=== PATIENT | male | born 1960 | race Caucasian/White ===

== ENCOUNTER 2016-12-30 13:58 | Emergency (ER) | payer SELFPAY ==
[~2016-12-30] VITALS: Ht 190.5 cm; Wt 99.6 kg
[~2016-12-30 13:58] MED LIST: ALBU1AER9 INH; AMOX500T3 PO; HOMETAB PO; IBUP-1427 PO
[2016-12-30 14:00] VITALS: TEMP 37; Ht 190.5 cm; Wt 99.6 kg
[2016-12-30] MEDS ORDERED: ASPI81TA28 PO (14:28)
[2016-12-30 14:47] LABS: BASO % 0.2 %; BASO ABS # 0.01 K/uL (0-0.2); COMPLETE YES; EOS % 1.3 %; HEMATOCRIT 42.9 % (42-52); IG% 0.4 %; LYMPH % 17.5 %; LYMPH ABS # 0.97 K/uL (1.2-3.4); MEAN CELL VOLUME 80.2 fL (80-100); MEAN CORPUSCULAR HEMOGLOBIN 28.6 pg (25-34); MEAN CORPUSCULAR HGB CONC 35.7 g/dl (32-36); MEAN PLATELET VOLUME 9.9 fL (7.4-10.4); MONO % 12.7 %; NEUT % 67.9 %; PLATELET COUNT 204 K/uL (130-400); RED BLOOD COUNT 5.35 M/uL (4.7-6.1); WHITE BLOOD COUNT 5.53 K/uL (4.8-10.8)
[2016-12-30] MEDS ORDERED: OPTIRAY 320 IV PRN (15:15)
--- NOTE | 2016-12-30 15:21 | DIAGNOSTIC IMAGING REPORT ---
CHEST ONE VIEW PORTABLE CLINICAL HISTORY: Left sided chest and back pain. COMPARISON STUDY: Chest radiograph October 10, 2015. FINDINGS: Linear left midlung opacity favors atelectasis. There is no consolidation to suggest pneumonia and there is no evidence of pulmonary edema. Cardiomediastinal silhouette is unremarkable. The patient is rotated. IMPRESSION: No acute cardiopulmonary findings. Electronically signed by: Carter Shoemaker M.D. 12/30/2016 3:19 PM Dictated Date/Time: 12/30/2016 3:18 PM
[2016-12-30 15:44] LABS: ALB/GLOB RATIO 1.1 (0.9-2); ALKALINE PHOSPHATASE 69 U/L (45-117); ALT/SGPT 24 U/L (12-78); AST/SGOT 18 U/L (15-37); BLOOD UREA NITROGEN 14 mg/dl (7-18); BUN/CREATININE RATIO 14.3 (10-20); CALCIUM 8.9 mg/dl (8.5-10.1); CARBON DIOXIDE 23 mmol/L (21-32); CHLORIDE 107 mmol/L (98-107); CKMB/CK RATIO 0.9 (0-3.0); CREATININE 0.96 mg/dl (0.60-1.40); GLUCOSE 107 mg/dl (70-99); POTASSIUM 4.1 mmol/L (3.5-5.1); SODIUM 141 mmol/L (136-145)
--- NOTE | 2016-12-30 16:29 | DIAGNOSTIC IMAGING REPORT ---
CHEST CTA for PULMONARY ARTERIES CT DOSE: 501.03 mGy.cm HISTORY: Left-sided chest pain. Short of breath. TECHNIQUE: Multiaxial CT images of the chest were performed following the intravenous administration of contrast to evaluate the pulmonary arteries. Maximal intensity projection images were also obtained. COMPARISON STUDY: Chest 12/30/2016. FINDINGS: There is a normal caliber thoracic aorta with no evidence for dissection. There is no evidence for pulmonary embolus. No pleural effusions. No pneumothorax. The liver is unremarkable. There appear to be multiple hypodense lesions within the spleen with the largest measuring 2.2 cm. Partially visualized exophytic hypodense lesion within the upper pole the right kidney which measures 2.9 cm. This favors a cyst. A 5 mm left thyroid nodule. No mediastinal or hilar lymphadenopathy. The central airways are patent. The lungs are essentially clear. IMPRESSION: 1. No evidence for pulmonary embolus. 2. There is suggestion of multiple hypodense round lesions within the spleen measuring up to 2.2 cm. Recommend dedicated splenic ultrasound for confirmation. Electronically signed by: Elia Madrid M.D. 12/30/2016 4:26 PM Dictated Date/Time: 12/30/2016 4:18 PM
--- NOTE | 2016-12-30 16:54 | EMERGENCY ROOM VISIT NOTE ---
History First contact with patient: 14:25 Chief Complaint: BACK PAIN Stated Complaint: BACK PAIN, MUSCLE BEHIND HEART/POSS. ANGINA History of Present Illness The patient is a 56 year old male who presents to the Emergency Room with complaints of left-sided thoracic back pain for "a while." The patient states that he has had intermittent pain in that area for the past one year. He states the pain is in the back and radiates into the chest. He states it is worse with movement. He denies any injury but does state that he is very active and lifts heavy boxes at work. He reports that the pain typically goes away on its own and stretching sometimes helps. The pain is not associated with exertion. It does not radiate into his jaw or arms. He states that he is short of breath at times when the pain is severe. He rates his overall discomfort a 9/10 and does not typically take any medications for the pain. He has a history of hypertension but does not take any medication for this. He denies any history of heart disease. He does report a history of heart disease in his father. The patient is a former smoker. He denies any recent prolonged travel. Review of Systems A complete 10-point Review of Systems was discussed with the patient, with pertinent positives and negatives listed in the History of Present Illness. All remaining Review of Systems questions can be considered negative unless otherwise specified. Past Medical/Surgical History Medical Problems: (1) Bursae & Tendons Dis Shlder Nos (2) Colles' Fracture-Closed (3) Shldr/Upper Arm Inj Nos (4) Unilat Inguinal Hernia Family History FH: multiple sclerosis Heart disease Seizures Social History Smoking Status: Former Smoker Alcohol Use: occasionally Marital Status: single Housing Status: lives with friends Occupation Status: employed Current/Historical Medications Scheduled Aspirin (Aspirin Ec), 81 MG PO DAILY Allergies Coded Allergies: No Known Allergies (Unverified , 12/30/16) Physical Exam Vital Signs Date Time Temp Pulse Resp B/P Pulse Ox O2 Delivery O2 Flow Rate FiO2 12/30/16 17:02 58 16 172/99 100 12/30/16 16:26 58 18 155/99 97 Room Air 12/30/16 14:49 67 12/30/16 14:00 37.0 74 18 159/106 94 Room Air Physical Exam VITALS: Vitals are noted on the nurse's note and reviewed by myself. Vital signs stable. GENERAL: This is a 56-year-old male, in no acute distress, nondiaphoretic, well- developed well-nourished. SKIN: The skin was without rashes. EARS: External auditory canals clear, tympanic membranes pearly rhodes without erythema or effusion bilaterally. EYES: Pupils equal round and reactive to light and accommodation. MOUTH: Mucous membranes moist. Tonsils are not enlarged. NECK: Supple without nuchal rigidity. No lymphadenopathy. HEART: Regular rate and rhythm without murmurs gallops or rubs. LUNGS: Clear to auscultation bilaterally without wheezes, rales or rhonchi. ABDOMEN: Positive bowel sounds x 4. Soft, nontender, without masses or organomegaly. MUSCULOSKELETAL: Reproducible tenderness over the left thoracic paraspinous muscles. NEURO: Patient was alert and oriented to person place and time. Medical Decision & Procedures ER Provider Diagnostic Interpretation: CHEST ONE VIEW PORTABLE FINDINGS: Linear left midlung opacity favors atelectasis. There is no consolidation to suggest pneumonia and there is no evidence of pulmonary edema. Cardiomediastinal silhouette is unremarkable. The patient is rotated. IMPRESSION: No acute cardiopulmonary findings. CHEST CTA for PULMONARY ARTERIES FINDINGS: There is a normal caliber thoracic aorta with no evidence for dissection. There is no evidence for pulmonary embolus. No pleural effusions. No pneumothorax. The liver is unremarkable. There appear to be multiple hypodense lesions within the spleen with the largest measuring 2.2 cm. Partially visualized exophytic hypodense lesion within the upper pole the right kidney which measures 2.9 cm. This favors a cyst. A 5 mm left thyroid nodule. No mediastinal or hilar lymphadenopathy. The central airways are patent. The lungs are essentially clear. IMPRESSION: 1. No evidence for pulmonary embolus. 2. There is suggestion of multiple hypodense round lesions within the spleen measuring up to 2.2 cm. Recommend dedicated splenic ultrasound for confirmation. Laboratory Results 12/30/16 14:24 Red Blood Count 5.35, Mean Corpuscular Volume 80.2, Mean Corpuscular Hemoglobin 28.6, Mean Corpuscular Hemoglobin Concent 35.7, Mean Platelet Volume 9.9, Neutrophils (%) (Auto) 67.9, Lymphocytes (%) (Auto) 17.5, Monocytes (%) (Auto) 12.7, Eosinophils (%) (Auto) 1.3, Basophils (%) (Auto) 0.2, Neutrophils # (Auto ) 3.76, Lymphocytes # (Auto) 0.97, Monocytes # (Auto) 0.70, Eosinophils # (Auto ) 0.07, Basophils # (Auto) 0.01 12/30/16 14:24 Test 12/30/16 14:24 White Blood Count 5.53 K/uL (4.8-10.8) Red Blood Count 5.35 M/uL (4.7-6.1) Hemoglobin 15.3 g/dL (14.0-18.0) Hematocrit 42.9 % (42-52) Mean Corpuscular Volume 80.2 fL (80-100) Mean Corpuscular Hemoglobin 28.6 pg (25-34) Mean Corpuscular Hemoglobin Concent 35.7 g/dl (32-36) Platelet Count 204 K/uL (130-400) Mean Platelet Volume 9.9 fL (7.4-10.4) Neutrophils (%) (Auto) 67.9 % Lymphocytes (%) (Auto) 17.5 % Monocytes (%) (Auto) 12.7 % Eosinophils (%) (Auto) 1.3 % Basophils (%) (Auto) 0.2 % Neutrophils # (Auto) 3.76 K/uL (1.4-6.5) Lymphocytes # (Auto) 0.97 K/uL (1.2-3.4) Monocytes # (Auto) 0.70 K/uL (0.11-0.59) Eosinophils # (Auto) 0.07 K/uL (0-0.5) Basophils # (Auto) 0.01 K/uL (0-0.2) RDW Standard Deviation 37.9 fL (36.4-46.3) RDW Coefficient of Variation 13.0 % (11.5-14.5) Immature Granulocyte % (Auto) 0.4 % Immature Granulocyte # (Auto) 0.02 K/uL (0.00-0.02) D-Dimer 1140 ug/L FEU (0-500) Anion Gap 11.0 mmol/L (3-11) Est Creatinine Clear Calc Drug Dose 102.7 ml/min Estimated GFR () 102.0 Estimated GFR (Non- 88.0 BUN/Creatinine Ratio 14.3 (10-20) Calcium Level 8.9 mg/dl (8.5-10.1) Total Bilirubin 0.5 mg/dl (0.2-1) Aspartate Amino Transf (AST/SGOT) 18 U/L (15-37) Alanine Aminotransferase (ALT/SGPT) 24 U/L (12-78) Alkaline Phosphatase 69 U/L (45-117) Total Creatine Kinase 148 U/L (39-308) Creatine Kinase MB 1.4 ng/ml (0.5-3.6) Creatine Kinase MB Ratio 0.9 (0-3.0) Troponin I < 0.015 ng/ml (0-0.045) Total Protein 7.3 gm/dl (6.4-8.2) Albumin 3.8 gm/dl (3.4-5.0) Globulin 3.5 gm/dl (2.5-4.0) Albumin/Globulin Ratio 1.1 (0.9-2) ECG Indication: back/shoulder pain Rate (beats per minute): 56 Rhythm: sinus bradycardia Findings: 1st degree AV block, T-wave inversion (Inferior) Comparison ECG Date: T-wave inversions present in lead II ED Course The patient was evaluated as above. Labs were drawn and IV access was obtained. Patient declined analgesics. Chest x-ray and CT for PE was performed and read by radiology as above. Discharge instructions were reviewed with the patient. The patient verbalized understanding of my assessment and treatment plan and was discharged home in good condition. Medical Decision Differential diagnosis includes acute coronary syndrome, pulmonary embolism, pneumothorax, pericarditis, myocarditis, endocarditis, anxiety, musculoskeletal pain, GERD, costochondritis, pneumonia, among others. The patient is a 56-year-old male who presents today complaining of left-sided chest/back pain which has been off and on for the past year. History, this does sound more like musculoskeletal pain than exertional chest pain. Labs revealed no leukocytosis, anemia or concerning electrolyte abnormalities. Troponin was not elevated. D-dimer was found to be elevated, but CT of the chest showed no evidence of PE. EKG showed a first-degree AV block which is chronic for the patient. No evidence of acute ischemia. Patient's pain is reproducible on examination. I feel it is likely secondary to a muscle spasm. He was instructed to follow-up with the primary care provider. Conservative measures were discussed. The patient's case was reviewed with Dr. Jorge, ED attending physician, who agreed with my assessment and treatment plan. Based on the patient's presentation and work up, I feel the patient is stable for outpatient treatment. The patient was educated to the emergency department for any worsening of their current condition or new/concerning symptoms. He will follow up with his primary care provider this week. Impression Primary Impression: Thoracic back pain Departure Information Dispostion Home / Self-Care Condition GOOD Referrals Asiya Mcclellan D.O. (PCP) Patient Instructions My [facility] Additional Instructions You have been treated in the Emergency Department for your Back pain. Laboratory results and Imaging Studies have ruled out any acute cardiac or pulmonary cause of your pain. For pain control, you can use the following [id number] medicines (if >12 yo): - Regular strength (325mg/tab) Tylenol (acetaminophen) 2 tabs every 4-6 hours as needed. Do not exceed 12 tablets in a 24 hour period. Avoid taking more than 4 grams (4000 mg) of Tylenol per day. This includes any other sources of acetaminophen you may take on a regular basis. - Regular strength (200 mg/tab) Advil (ibuprofen) 1-2 tabs every 4-6 hours as needed. Do not exceed a dose of 3200 mg per day. You should schedule a follow-up appointment with your Primary Care Provider in 2 -3 days for further evaluation from today's Emergency Department visit. You will also need an ultrasound of your spleen due to some abnormalities on the CT scan. Your blood pressure should be rechecked by the primary care provider this week, as it was high today. Return to the Emergency Department if your current symptoms worsen despite treatment course outlined above, or if you develop any of the following symptoms : worsening chest pain, associated jaw/arm pain, nausea, dizziness, shortness of breath, bloody cough, or fainting. Problem Qualifiers Primary Impression: Thoracic back pain Chronicity: acute Back pain laterality: left Qualified Codes: M54.6 - Pain in thoracic spine
[2016-12-30 17:02] VITALS: BP 172/99; PULSE 58; O2SAT 100
== END 2016-12-30 17:03 | disposition home or self-care (01) ==
LOC: C.EDB 14:00 → C.EDC 17:03
DX: M54.6 Pain in thoracic spine (principal); I44.0 Atrioventricular block, first degree; Z87.81 Personal history of (healed) traumatic fracture; Z87.891 Personal history of nicotine dependence; Z79.82 Long term (current) use of aspirin; Z82.49 Family history of ischemic heart disease and other diseases of the circulatory system; Z82.0 Family history of epilepsy and other diseases of the nervous system

== ENCOUNTER 2020-02-17 19:46 | Observation (INO) ==
[2020-02-17] MEDS ORDERED: SODIUM CHLORIDE 0.9% 1000ML 1,000 ML IV SCH (20:30)
[2020-02-17 20:49] LABS: Basophils # (auto) 0.03 K/uL (0-0.2); Basophils % (auto) 0.4 %; Eosinophils # (auto) 0.42 K/uL (0-0.5); Eosinophils % (auto) 5.3 %; Hematocrit (blood only) 32.7 % (42-52); Hemoglobin 11.2 g/dL (14.0-18.0); Immature Granulocytes # (auto) 0.01 K/uL (0.00-0.02); Immature Granulocytes % (auto) 0.1 %; Lymphocytes # (auto) 1.64 K/uL (1.2-3.4); Lymphocytes % (auto) 20.7 %; Mean Corpuscular Hemoglobin 29.1 pg (25-34); Mean Corpuscular Hgb Conc 34.3 g/dL (32-36); Mean Corpuscular Volume 84.9 fL (80-100); Monocytes # (auto) 0.52 K/uL (0.11-0.59); Monocytes % (auto) 6.6 %; Neutrophils # (auto) 5.31 K/uL (1.4-6.5); Neutrophils % (auto) 66.9 %; Platelet Count 223 K/uL (130-400); RDW Coefficient of Variation 13.8 % (11.5-14.5); RDW Standard Deviation 42.5 fL (36.4-46.3); Red Blood Count 3.85 M/uL (4.7-6.1); White Blood Count 7.93 K/uL (4.8-10.8)
--- NOTE | 2020-02-17 20:52 | XRay Report ---
XR chest 1V portable CLINICAL HISTORY: Atypical chest pain. Cough. COMPARISON STUDY: 03/25/2018 FINDINGS: The cardiac and mediastinal contours are normal. There is no evidence of focal pulmonary co nsolidation. There is no evidence of failure. No pleural effusions are visualized.[No pneumothorax is visualized. IMPRESSION: No active disease in the chest. ACT 112: Negative or not required by law. Electronically signed by: Emmanuel Mcintosh M.D. 02/17/2020 8:51 PM
[2020-02-17 20:59] LABS: INR 0.9 (0.9-1.1); Partial Thromboplastin Time 27.9 Seconds (21.0-31.0); Prothrombin Time 9.8 Seconds (9.0-12.0)
[2020-02-17 21:05] LABS: BUN Creatinine Ratio 22.7 (10-20); Calcium 8.4 mg/dl (8.5-10.1); Creatinine Clr Calc Pharmacy 123.3 ml/min; Est GFR (African American) 116.4; Est GFR (Non-African American) 100.4; Potassium 4.1 mmol/L (3.5-5.1)
[2020-02-17 21:08] LABS: Bilirubin,Total 0.4 mg/dl (0.2-1); Globulin 2.9 gm/dl (2.5-4.0); Total Protein 5.9 gm/dl (6.4-8.2)
[2020-02-17] MEDS ORDERED: IOVERSOL 100ml IV PRN (22:02)
[2020-02-17 23:02] LABS: Basophils # (auto) 0.02 K/uL (0-0.2); Basophils % (auto) 0.3 %; Eosinophils % (auto) 5.4 %; Hematocrit (blood only) 29.8 % (42-52); Hemoglobin 10.2 g/dL (14.0-18.0); Immature Granulocytes # (auto) 0.02 K/uL (0.00-0.02); Immature Granulocytes % (auto) 0.3 %; Lymphocytes # (auto) 1.67 K/uL (1.2-3.4); Lymphocytes % (auto) 22.6 %; Mean Corpuscular Hemoglobin 29.2 pg (25-34); Mean Corpuscular Hgb Conc 34.2 g/dL (32-36); Mean Corpuscular Volume 85.4 fL (80-100); Mean Platelet Volume 9.8 fL (7.4-10.4); Monocytes # (auto) 0.46 K/uL (0.11-0.59); Monocytes % (auto) 6.2 %; Neutrophils # (auto) 4.83 K/uL (1.4-6.5); Neutrophils % (auto) 65.2 %; Platelet Count 195 K/uL (130-400); RDW Coefficient of Variation 13.8 % (11.5-14.5); Red Blood Count 3.49 M/uL (4.7-6.1)
--- NOTE | 2020-02-18 01:25 | Emergency Department Note ---
Impression & Plan Contusion of flank, Anemia, Cannabis dependence, daily use, Malaise and fatigue ED Provider Note NAME: WILL JAIN JR AGE: 59 SEX: M ARRIVES VIA: Walk-In INFORMANT: Patient, ED PROVIDER(S): Zack Lindsey MD CHIEF COMPLAINT: Right flank pain PLAN: Disposition: Admit MEDICAL DECISION MAKING: The patient is a 59-year-old gentleman with a past medical history of anxiety, depression, daily marijuana use, hypertension, GERD, arthritis on diclofenac and full dose aspirin who presents emergency department with worsening right flank pain with ecchymosis that he reports he just noticed today but had pain that is been evolving since the . The patient was seen in the emergency department on 02/09 for concerns that he had COVID-19 with a negative test. There are notes in the [employer] system where the patient wished to get retested even though his risk factors appeared low. Patient denies any cough, congestion, nausea, vomiting, diarrhea. On arrival the patient is well-appearing in no acute distress, afebrile with stable vital signs. On exam the patient has a large area of ecchymosis and tenderness of the right abdominal region/flank without bony crepitus or fluctuance. WBC and platelets are within normal limits. Patient's hemoglobin however is 11.2 which is down from 15.9 just 7 days ago. INR is within normal limits. Chemistry without acidosis. Electrolytes and LFTs otherwise unremarkable. Lipase within normal limits. Alcohol was undetectable. CT abdomen pelvis was performed and demonstrates contusion of the abdominal wall/flank without any intra-abdominal traumatic findings. There is no comment of active extravasation nor do I appreciate any on review of images. On reevaluation the patient continued to appear well and only complaint of pain which was clearly related to his contusion. A repeat CBC was performed and did demonstrate drift of his hemoglobin down to 10.2 but this is also in the setting of IV fluid hydration. Given patient is not on anticoagulation, unlikely to develop uncontrolled hemorrhage. However, given the overall down-trend of the patient's H/H since a week ago, reasonable to admit the patient for further monitoring of exam and H/H. Will order a abdominal binder for comfort and to minimize potential recurrence of possible bleeding. He is agreeable with plan for admission. Case was discussed with Dr. Rangel, [facility] hospitalist, who will evaluate the patient for admission. Triage Nursing notes reviewed and agree them. Additional history obtained from [facility] records Prior medical records reviewed Vital Signs: reviewed and remarkable for no significant abnormalities Differential diagnosis: Appendicitis, testicular torsion, infections, diverticulitis, UTI, obstruction, mesenteric ischemia, aortic pathology, inflammatory bowel disease, renal colic, PUD, pancreatitis, biliary pathology, hernia, volvulus, constipation, as well as other pathologies. ER treatment provided: See below. Diagnostics interpreted by me: Cardiac Monitoring: An order for continuous cardiac monitoring was placed and demonstrated NSR, 65 bpm, no ectopy Laboratory studies: See below Imaging studies: XR chest 1V portable CLINICAL HISTORY: Atypical chest pain. Cough. COMPARISON STUDY: 03/25/2018 FINDINGS: The cardiac and mediastinal contours are normal. There is no evidence of focal pulmonary consolidation. There is no evidence of failure. No pleural effusions are visualized.[No pneumothorax is visualized. IMPRESSION: No active disease in the chest. -- STATRAD Preliminary Findings Only See Final Report For Complete Findings CT ABDOMEN & PELVIS With Contrast: Right abdominal wall contusion. No intraperitoneal traumatic injury. No fracture. Innumerable indeterminate low-attenuation lesions within the spleen which are not consistent with simple cysts. The spleen is not enlarged. There is no adenopathy. Correlate with any available prior studies. If none are available, consider MRI without and with contrast for further evaluation. Liver, gallbladder, pancreas, and adrenal glands are unremarkable. Cysts within the right kidney. No renal or ureteral stones. No free fluid, fluid collection, or free air. Radiologist: Blayne Jameson MD Study ready at 22:00 and initial results transmitted at 22:20 Consultation(s): [facility] for [facility]. HPI: The patient is a 59-year-old gentleman with a past medical history of anxiety, depression, daily marijuana use, hypertension, GERD, arthritis on diclofenac and full dose aspirin who presents emergency department with worsening right flank pain with ecchymosis that he reports he just noticed today but had pain that is been evolving since the . The patient was seen in the emergency department on 02/09 for concerns that he had COVID-19 with a negative test. There are notes in the [employer] system where the patient wished to get retested even though his risk factors appeared low. Patient denies any cough, congestion, nausea, vomiting, diarrhea. ROS: See above HPI for pertinent positives & negatives. A total of 10 systems reviewed and were otherwise negative. PAST MEDICAL HISTORY:See Below PAST SURGICAL HISTORY:See Below FAMILY HISTORY:See Below SOCIAL HISTORY:See Below HOME MEDICATIONS:See Below ALLERGIES:See Below VITALS:See Below PHYSICAL EXAMINATION: GENERAL: Awake, alert, well-appearing, in no distress HENT: Normocephalic, atraumatic. Oropharynx with dry mucous membranes and othe rwise unremarkable. EYES: Normal conjunctiva. Sclera non-icteric. NECK: Supple. No nuchal rigidity. FROM. No JVD. RESPIRATORY: Clear to auscultation. CARDIAC: Regular rate, normal rhythm. Extremities warm and well perfused. Pulses equal. ABDOMEN: Soft, non-distended. No tenderness to palpation. No rebound or guarding. No masses. RECTAL: Deferred. MUSCULOSKELETAL: Chest examination reveals no tenderness. The back is symmetrical on inspection without obvious abnormality. Right flank ecchymosis a nd tenderness without fluctuance or bony crepitus. LOWER EXTREMITIES: Calves are equal size bilaterally and non-tender. No edema. No discoloration. NEURO: Normal sensorium. No sensory or motor deficits noted. Colorful affect. SKIN: No rash or jaundice noted. Zack Lindsey MD Past Med/Surg History Medical History Anxiety (Acute) GERD (gastroesophageal reflux disease) Hypertension (Acute) Social History Feels Safe at Home: Yes Smoking Status: Never smoker Allergies Allergies Allergy/AdvReac Type Severity Reaction Status Date / Time No Known Allergies Allergy Unverified 02/17/20 21:27 Home Meds Home Medications Medication Instructions Recorded Confirmed amlodipine 5 mg PO QAM 02/17/20 02/17/20 ascorbic acid (vitamin C) [Vitamin 1 g PO DAILY 02/17/20 02/17/20 C] benazepril 10 mg PO QAM 02/17/20 02/17/20 diclofenac sodium 75 mg PO BID 02/17/20 02/17/20 duloxetine 60 mg PO QAM 02/17/20 02/17/20 ferrous sulfate 325 mg PO QAM 02/17/20 02/17/20 folic acid 0.4 mg PO QAM 02/17/20 02/17/20 melatonin 3 mg PO HS 02/17/20 02/17/20 multivitamin 1 tab PO QAM 02/17/20 02/17/20 omeprazole 20 mg PO QAM 02/17/20 02/17/20 ondansetron HCl 4 mg PO TID PRN 02/17/20 02/17/20 aspirin 325 mg PO BID 02/18/20 02/18/20 Results & Data (ED) Vital Signs Vital Signs - 24 hr 02/17/20 19:53 02/17/20 21:14 02/17/20 22:35 Temperature 37.0 C Temperature Source Oral Pulse Rate 65 Pulse Rate [Apical] 54 L 60 Pulse Rate from SpO2 Sensor Respiratory Rate 16 21 17 Blood Pressure 100/68 Blood Pressure [Right Arm] 101/59 L 109/66 Blood Pressure Mean 78 Blood Pressure Mean [Right Arm] 73 80 Blood Pressure Position Sitting Pulse Oximetry 95 96 97 Oxygen Delivery Method Room Air Room Air Room Air Sepsis Recent Fever Within 48 Hours No Sepsis New/Unexplained Change in Mental Status No Sepsis Action Taken by Nursing No Action Required 02/17/20 23:00 02/17/20 23:30 02/18/20 00:00 Temperature Temperature Source Pulse Rate 53 L 52 L 51 L Pulse Rate [Apical] Pulse Rate from SpO2 Sensor 53 L 51 L 51 L Respiratory Rate 22 22 24 Blood Pressure 106/56 L 98/57 L 104/57 L Blood Pressure [Right Arm] Blood Pressure Mean 65 65 64 Blood Pressure Mean [Right Arm] Blood Pressure Position Pulse Oximetry 97 97 97 Oxygen Delivery Method Room Air Room Air Room Air Sepsis Recent Fever Within 48 Hours Sepsis New/Unexplained Change in Mental Status Sepsis Action Taken by Nursing 02/18/20 00:45 02/18/20 01:00 02/18/20 01:30 Temperature Temperature Source Pulse Rate 52 L 49 L 50 L Pulse Rate [Apical] Pulse Rate from SpO2 Sensor 52 L 49 L 47 L Respiratory Rate Blood Pressure 99/59 L 117/69 104/69 Blood Pressure [Right Arm] Blood Pressure Mean 63 75 76 Blood Pressure Mean [Right Arm] Blood Pressure Position Pulse Oximetry 96 97 94 Oxygen Delivery Method Room Air Room Air Room Air Sepsis Recent Fever Within 48 Hours Sepsis New/Unexplained Change in Mental Status Sepsis Action Taken by Nursing Laboratory Data Attestation: I reviewed the patient's lab results. Result diagrams: 02/17/20 22:53 02/17/20 20:32 Lab Results 02/17/20 02/17/20 02/17/20 Range/Units 20:32 20:32 20:32 WBC 7.93 (4.8-10.8) K/uL RBC 3.85 L (4.7-6.1) M/uL Hgb 11.2 L (14.0-18.0) g/dL Hct 32.7 L (42-52) % MCV 84.9 (80-100) fL MCH 29.1 (25-34) pg MCHC 34.3 (32-36) g/dL RDW Std Deviation 42.5 (36.4-46.3) fL RDW Coeff of Haleigh 13.8 (11.5-14.5) % Plt Count 223 (130-400) K/uL MPV 10.0 (7.4-10.4) fL Immature Gran % (Auto) 0.1 % Neut % (Auto) 66.9 % Lymph % (Auto) 20.7 % Sear[place] % (Auto) 6.6 % Eos % (Auto) 5.3 % Baso % (Auto) 0.4 % Immature Gran # (Auto) 0.01 (0.00-0.02) K/uL Neut # (Auto) 5.31 (1.4-6.5) K/uL Lymph # (Auto) 1.64 (1.2-3.4) K/uL Sear[place] # (Auto) 0.52 (0.11-0.59) K/uL Eos # (Auto) 0.42 (0-0.5) K/uL Baso # (Auto) 0.03 (0-0.2) K/uL PT 9.8 (9.0-12.0) Seconds INR 0.9 (0.9-1.1) APTT 27.9 (21.0-31.0) Seconds PTT Ratio 1.0 Sodium 138 (136-145) mmol/L Potassium 4.1 (3.5-5.1) mmol/L Chloride 108 H (98-107) mmol/L Carbon Dioxide 28 (21-32) mmol/L Anion Gap 2.0 L (3-11) BUN 17 (7-18) mg/dl Creatinine 0.75 (0.6-1.4) mg/dl Est Cr Clr Drug Dosing 123.3 ml/min Est GFR ( Amer) 116.4 Est GFR (Non-Af Amer) 100.4 BUN/Creatinine Ratio 22.7 H (10-20) Glucose 114 H (70-99) mg/dl Calcium 8.4 L (8.5-10.1) mg/dl Total Bilirubin 0.4 (0.2-1) mg/dl AST 16 (15-37) U/L ALT 16 (12-78) U/L Alkaline Phosphatase 61 (45-117) U/L Total Protein 5.9 L (6.4-8.2) gm/dl Albumin 3.0 L (3.4-5.0) gm/dl Globulin 2.9 (2.5-4.0) gm/dl Albumin/Globulin Ratio 1.0 (0.9-2) Lipase (73-393) U/L Ethyl Alcohol mg/dL (0-3) mg/dl Blood Type Antibody Screen 02/17/20 02/17/20 02/17/20 Range/Units 20:40 21:40 21:40 WBC (4.8-10.8) K/uL RBC (4.7-6.1) M/uL Hgb (14.0-18.0) g/dL Hct (42-52) % MCV (80-100) fL MCH (25-34) pg MCHC (32-36) g/dL RDW Std Deviation (36.4-46.3) fL RDW Coeff of Haleigh (11.5-14.5) % Plt Count (130-400) K/uL MPV (7.4-10.4) fL Immature Gran % (Auto) % Neut % (Auto) % Lymph % (Auto) % [place] % (Auto) % Eos % (Auto) % Baso % (Auto) % Immature Gran # (Auto) (0.00-0.02) K/uL Neut # (Auto) (1.4-6.5) K/uL Lymph # (Auto) (1.2-3.4) K/uL Searcy # (Auto) (0.11-0.59) K/uL Eos # (Auto) (0-0.5) K/uL Baso # (Auto) (0-0.2) K/uL PT (9.0-12.0) Seconds INR (0.9-1.1) APTT (21.0-31.0) Seconds PTT Ratio Sodium (136-145) mmol/L Potassium (3.5-5.1) mmol/L Chloride (98-107) mmol/L Carbon Dioxide (21-32) mmol/L Anion Gap (3-11) BUN (7-18) mg/dl Creatinine (0.6-1.4) mg/dl Est Cr Clr Drug Dosing ml/min Est GFR ( Amer) Est GFR (Non-Af Amer) BUN/Creatinine Ratio (10-20) Glucose (70-99) mg/dl Calcium (8.5-10.1) mg/dl Total Bilirubin (0.2-1) mg/dl AST (15-37) U/L ALT (12-78) U/L Alkaline Phosphatase (45-117) U/L Total Protein (6.4-8.2) gm/dl Albumin (3.4-5.0) gm/dl Globulin (2.5-4.0) gm/dl Albumin/Globulin Ratio (0.9-2) Lipase 107 (73-393) U/L Ethyl Alcohol mg/dL < 3.0 (0-3) mg/dl Blood Type B Positive Antibody Screen NEGATIVE 02/17/20 Range/Units 22:53 WBC 7.40 (4.8-10.8) K/uL RBC 3.49 L (4.7-6.1) M/uL Hgb 10.2 L (14.0-18.0) g/dL Hct 29.8 L (42-52) % MCV 85.4 (80-100) fL MCH 29.2 (25-34) pg MCHC 34.2 (32-36) g/dL RDW Std Deviation 43.0 (36.4-46.3) fL RDW Coeff of Haleigh 13.8 (11.5-14.5) % Plt Count 195 (130-400) K/uL MPV 9.8 (7.4-10.4) fL Immature Gran % (Auto) 0.3 % Neut % (Auto) 65.2 % Lymph % (Auto) 22.6 % Searcy % (Auto) 6.2 % Eos % (Auto) 5.4 % Baso % (Auto) 0.3 % Immature Gran # (Auto) 0.02 (0.00-0.02) K/uL Neut # (Auto) 4.83 (1.4-6.5) K/uL Lymph # (Auto) 1.67 (1.2-3.4) K/uL [place] # (Auto) 0.46 (0.11-0.59) K/uL Eos # (Auto) 0.40 (0-0.5) K/uL Baso # (Auto) 0.02 (0-0.2) K/uL PT (9.0-12.0) Seconds INR (0.9-1.1) APTT (21.0-31.0) Seconds PTT Ratio Sodium (136-145) mmol/L Potassium (3.5-5.1) mmol/L Chloride (98-107) mmol/L Carbon Dioxide (21-32) mmol/L Anion Gap (3-11) BUN (7-18) mg/dl Creatinine (0.6-1.4) mg/dl Est Cr Clr Drug Dosing ml/min Est GFR ( Amer) Est GFR (Non-Af Amer) BUN/Creatinine Ratio (10-20) Glucose (70-99) mg/dl Calcium (8.5-10.1) mg/dl Total Bilirubin (0.2-1) mg/dl AST (15-37) U/L ALT (12-78) U/L Alkaline Phosphatase (45-117) U/L Total Protein (6.4-8.2) gm/dl Albumin (3.4-5.0) gm/dl Globulin (2.5-4.0) gm/dl Albumin/Globulin Ratio (0.9-2) Lipase (73-393) U/L Ethyl Alcohol mg/dL (0-3) mg/dl Blood Type Antibody Screen Administered Medications Pantoprazole Sodium 40 mg/ (Syringe) 10 mls @ 5 mls/min IV BID BUZZ Stop: 03/19/20 03:08 Last Admin: 02/18/20 04:13 Dose: 5 mls/min Documented by: [id number] Discontinued Medications Sodium Chloride (Nss 1000ml) 1,000 mls @ 999 mls/hr IV .Q1H1M BUZZ Stop: 02/17/20 21:30 Last Infusion: 02/17/20 22:19 Dose: 0 mls/hr Documented by: [id number] Admin: 02/17/20 21:17 Dose: 999 mls/hr Documented by: [id number] Ioversol (Optiray 320 100ml) 93 ml IV ONCE PRN PRN Reason: Interaction Checking Stop: 02/21/20 22:01 Last Admin: 02/17/20 22:03 Dose: 1 ml Documented by: [id number] Blood Pressure Blood Pressure Findings: Normal blood pressure Discharge Plan Visit Data *Final* Discharge Date/Time: 02/18/20 02:48 Chief Complaint: Skin Problem Stated Complaint: RT SIDE FLANK/BACK SKIN ISSUE, HERE WEEK AGO ED Provider: Zack Lindsey Discharge Problem: Contusion of flank, Anemia, Cannabis dependence, daily use, Malaise and fatigue Patient Disposition: Admitted As Inpatient Discharge Instructions Interventions: ED Discharge Assessment Last Done: 02/18/20 02:48 Discharge Problem: Contusion of flank Qualifiers: Encounter type: initial encounter Qualified Code(s): S30.1XXA - Contusion of abdominal wall, initial encounter Anemia Qualifiers: Anemia type: unspecified type Qualified Code(s): D64.9 - Anemia, unspecified
[2020-02-18] MEDS ORDERED: POLYETHYLENE (MIRALAX) 17 GM PACK PO PRN (03:09)
[2020-02-18] MEDS ORDERED: ONDANSETRON INJ 2 MG/ML 2 ML VIAL IV PRN (03:09)
[2020-02-18] MEDS ORDERED: ACETAMINOPHEN 325 MG TAB PO PRN (03:09)
[2020-02-18] MEDS: PANTOprazole 40 MG in SYRINGE 0 ML IV SCH ×3 (04:13→20:41)
--- NOTE | 2020-02-18 04:19 | History and Physical Report ---
DATE OF ADMISSION: 02/18/2020 CHIEF COMPLAINT: Bruise in his abdomen. HISTORY OF PRESENT ILLNESS: This is a 59-year-old male with past medical history significant for hypertension, plantar fascitis, primary osteoarthritis of both knees, cannabis dependence, medical marijuana use, mood disorder, presents with a bruise on his right flank region. The patient was in the ER on 02/10/2020 complaining of abdominal discomfort. At that time, labs were all fine and he was discharged. At that time, his hemoglobin was 15.9. The patient states since then he was having lot of nausea, abdominal discomfort, so he did not take his pills and he did not take food for 2 or 3 days, but he started taking his pills again 2 days back. On morning, he went for bike ride and when he came up, he noticed some pain and discomfort in his right flank region and noticed a bruise coming up there and that is the reason he came to the ER. His hemoglobin has dropped down to 10.2. Denies any blood in the stools or black stools. He takes iron tablets. He is on aspirin 325 mg p.o. b.i.d. He is taking 2 tablets of aspirin since his knee surgery in October of 2018. He is also on diclofenac sodium 75 mg p.o. b.i.d. He has some back discomfort. Otherwise, denies any other complaints. No chest pain, no shortness of breath, no cough, no fever, no chills. Has some mild headache, no blurred visions, no earache, no runny nose, no sore throat. Normal bladder movements. Ambulating okay. He lives with a roommate who works at [email or web address]. Recently on 02/04/2020, he was tested for COVID because of possible exposure at work place and some flu-like symptoms, but it was negative. ALLERGIES: No known drug allergies. PAST MEDICAL HISTORY: As mentioned above. PAST SURGICAL HISTORY: Left total knee arthroplasty, right repair of biceps tendon rupture and rotator cuff, left wrist fracture, cyst removed from groin, excision of the soft tissue mass in the right thigh, tonsillectomy, cataract surgeries, right inguinal hernia repair. MEDICATIONS: The patient is on aspirin 325 mg p.o. b.i.d., melatonin 5 mg p.o. at bedtime, Zofran 4 mg p.o. t.i.d. p.r.n., amlodipine 5 mg p.o. daily, diclofenac sodium 75 mg p.o. b.i.d., omeprazole 20 mg p.o. daily, folic acid 800 mcg 2 tablets daily, benazepril 10 mg daily, Cymbalta 60 mg p.o. daily, ferrous sulfate 325 mg p.o. daily, ascorbic acid 1000 mg b.i.d., multivitamins with minerals 1 tablet daily. FAMILY HISTORY: Significant for uncle has diabetes, father has hypertension, paternal grandfather had stroke. SOCIAL HISTORY: Single, former smoker, quit in 1995. Alcohol occasional. Smokes marijuana. REVIEW OF SYSTEMS: As per HPI. Rest of review of systems negative. PHYSICAL EXAMINATION: GENERAL: The patient is of moderate build, not in acute distress. VITAL SIGNS: Temperature 37, pulse 50, respiratory rate 24, blood pressure 104/69, oxygen 94% on room air. HEENT: Pupils equal, round, reactive to light. NECK: No JVD. No neck masses seen. CARDIOVASCULAR: S1, S2 heard, regular rate and rhythm, no murmur, no gallop. RESPIRATORY SYSTEM: Normal AP diameter. No accessory muscle use. No wheezing, no crackles. ABDOMEN: Soft, bowel sounds present. Does have mild tenderness in the epigastric and periumbilical region. Significant bruise seen in the right flank region extending into the anterior part of the abdomen. CENTRAL NERVOUS SYSTEM: Cranial nerves II-XII grossly intact. Nonfocal. EXTREMITIES: No edema, no erythema. LABORATORY DATA: WBC 7.4, hemoglobin 10.2, hematocrit 29.8, platelets 195. PT 9.8, INR 0.9, APTT 27.9. Sodium 138, potassium 4.1, chloride 108, bicarbonate 28, BUN 17, creatinine 0.75, serum glucose 114, calcium 8.4, total bilirubin 0.4, AST 16, ALT 16, alkaline phosphatase 61, lipase 107. Ethyl alcohol less than 3. IMAGING DATA: Chest x-ray, no active disease in the chest. CT of abdomen and pelvis, preliminary report, no acute findings. ASSESSMENT AND PLAN: This is a 59-year-old who presents with right flank bruising, also found to have anemia. 1. Right flank bruise. Could be from his medications. He is on aspirin 325 mg p.o. b.i.d. since his knee surgery in October 2018. He also has diclofenac sodium which we will hold. Abdominal binder was ordered in the ER, which he will continue. We will observe in the floor. We will follow the final report of the CAT scan of the abdomen and pelvis. 2. Anemia, hemoglobin of 10.2. His recent hemoglobin on 02/10/2020 was 15.9, possibly acute blood loss anemia, could be in his abdomen. We will follow the final report of the CT of the abdomen and pelvis. A large bruise in his right flank extending to abdomen, possibly from his high-dose aspirin and also diclofenac sodium which we will hold. We will also check stools for Hemoccult ,iron studies and vitamin B12, folic acid levels, and follow the labs in the a.m. If any concern, we will consult GI. Has abdominal discomfort, possibly gastritis from his medications, we will place him on IV Protonix b.i.d. 3. Mood disorder, continue on duloxetine. 4. Hypertension. Continue his amlodipine and Lotensin. 5. Deep venous thrombosis prophylaxis, sequential compression devices for now. 6. Disposition: Observation in medical floor. Expect to discharge home and follow with his family doctor. Level 1 full code. MTDD
[2020-02-18 06:15] LABS: Basophils # (auto) 0.03 K/uL (0-0.2); Basophils % (auto) 0.5 %; Eosinophils # (auto) 0.36 K/uL (0-0.5); Eosinophils % (auto) 5.6 %; Hematocrit (blood only) 30.2 % (42-52); Hemoglobin 10.7 g/dL (14.0-18.0); Immature Granulocytes # (auto) 0.01 K/uL (0.00-0.02); Immature Granulocytes % (auto) 0.2 %; Lymphocytes # (auto) 1.59 K/uL (1.2-3.4); Lymphocytes % (auto) 24.7 %; Mean Corpuscular Hemoglobin 30.3 pg (25-34); Mean Corpuscular Hgb Conc 35.4 g/dL (32-36); Mean Corpuscular Volume 85.6 fL (80-100); Mean Platelet Volume 9.8 fL (7.4-10.4); Monocytes # (auto) 0.48 K/uL (0.11-0.59); Monocytes % (auto) 7.5 %; Neutrophils # (auto) 3.97 K/uL (1.4-6.5); Neutrophils % (auto) 61.5 %; Platelet Count 188 K/uL (130-400); RDW Standard Deviation 43.6 fL (36.4-46.3); Red Blood Count 3.53 M/uL (4.7-6.1); White Blood Count 6.44 K/uL (4.8-10.8)
[2020-02-18 06:33] LABS: Calcium 8.1 mg/dl (8.5-10.1); Creatinine Clr Calc Pharmacy 146.8 ml/min; Est GFR (Non-African American) 107.9; Magnesium 2.1 mg/dl (1.8-2.4); Potassium 4.2 mmol/L (3.5-5.1)
[2020-02-18 06:38] LABS: Ferritin 103.5 ng/ml (8-388)
--- NOTE | 2020-02-18 07:20 | CT Scan Report ---
ABDOMEN AND PELVIS CT WITH IV CONTRAST CT DOSE: 622.34 mGy.cm HISTORY: right flank pain, ecchymosis, ?trauma TECHNIQUE: Multiaxial CT images of the abdomen and pelvis were performed following the use of intrave nous contrast. A dose lowering technique was utilized adhering to the principles of ALARA. COMPARISON STUDY: None. FINDINGS: The lung bases are clear. No pneumoperitoneum. No pneumatosis. No fractures within the visu alized osseous structures. Right lateral abdominal wall subcutaneous contusion. Small fat-containing left inguinal hernia. The bladder is unremarkable. No pelvic free fluid. The gallbladder is decompres sed. The liver is unremarkable. Adrenal glands and pancreas are within normal limits. There are 2 hyp odense lesions within the right kidney consistent with cysts. The largest measures 4.3 cm. Normal lef t kidney. No retroperitoneal lymphadenopathy or retroperitoneal hematoma. Innumerable hypodense lesio ns seen scattered throughout the spleen. Dominant lesion at the splenic dome measures 2.5 cm. Normal bladder. No bowel wall thickening or obstruction. Moderate well-formed stool seen throughout the colo n. Normal appendix. IMPRESSION: 1. Right lateral abdominal wall subcutaneous contusion. 2. Innumerable hypodense lesions seen scattered throughout the spleen which do not represent cysts. T hese are indeterminate but favor multiple hemangiomas or hamartomas. However, comparison to old studi es or follow-up MRI with and without contrast can be used for confirmation. 3. No retroperitoneal hematoma. 4. No bowel wall thickening or obstruction. ACT 112: Negative or not required by law. Electronically signed by: Elia Madrid M.D. 02/18/2020 7:19 AM
[2020-02-18 07:47] LABS: Folate (Folic Acid) 17.35 ng/ml (>5.38)
[2020-02-18] MEDS: ASCORBIC ACID 500 MG TAB PO SCH (08:09)
[2020-02-18] MEDS: DULOXETINE HCL 60 MG CAP PO SCH (08:09)
[2020-02-18] MEDS: ENALAPRIL MALEATE 10 MG TAB PO SCH (08:09)
[2020-02-18] MEDS: FERROUS SULFATE 325 MG TAB PO SCH (08:10)
[2020-02-18] MEDS: MULTIVITAMIN TAB PO SCH (08:10)
[2020-02-18] MEDS: AMLODIPINE BESYLATE 5 MG TAB PO SCH (08:10)
[2020-02-18] MEDS: FOLIC ACID 400 MCG TAB PO SCH (08:10)
--- NOTE | 2020-02-18 11:17 | Gastrointestinal Consultation ---
Date of Consultation February 18, 2020 Assessment & Plan (1) Contusion of flank: (2) Anemia: (3) Weight loss: Pt is a 59 y/o male admitted w R lower flank bruising, noted to have subcutenaous contusion on CT scan w/o retroperitoneal hemorrhage. On eval, he has new onset anemia, blood ct was normal a week ago. He was having symptoms of abd pain, n/v, weight loss, flu like symptoms. Outpt COVID 19 negative. His abd symptoms and appetite improved since he stopped "all of his meds". He was on h igh doses ASA and Diclofenac for L knee pain. Wonder if he may have PUD - Hemolysis workup (ordered LDH, Haptoglobin, blood smear) - Monitor H/H and transfuse prn - Keep NPO, plan for EGD eval this afternoon by Dr. Vita Ann - Continue Protonix 40mg IV BID - Avoid NSAIDs - GI will give further recs after EGD completed. If negative EGD finding will consider repeat outpt colonoscopy Supervising Physician Co-Signing Physician Notes I saw and evaluated the patient. We are consulted with regard to anemia. The patient said he has had flank discomfort 1 week and ultimately developed a very large hematoma on his right flank. He did have a prior colonoscopy with Dr. Roberts 2 years ago notable for an adenomatous polyp. Patient denies having hematemesis, ground emesis, hematochezia or dark sticky stool. He does have 1 bowel movement per day that is presently brown in color. Physical examination No obvious distress Large hematoma noted on the right flank Impression: Patient's anemia is most likely related to the large hematoma we had offered upper endoscopy however the patient had a liquid lunch and therefore anesthesia is uncomfortable with doing an exam today. At there does not appear to be any acute evidence of a gastrointestinal bleeding at the present time and I would recommend an outpatient upper endoscopy and colonoscopy over the next 1 to 2 weeks. Recommendations Outpatient upper endoscopy and colonoscopy to be scheduled Please call with any questions or concerns or if there is an additional drop in hematocrit or evidence of gastrointestinal bleeding History of Present Illness Reason for Consultation: Anemia, r/o PUD Requesting Physician: Dr. Estuardo Rodriguez Attending Physician: Dr. Vita Ann History of Present Illness Pt is a 59 y/o male who presented last night w c/o R lower flank bruise which he noticed for 2 days now. He denies any trauma to that area, thought maybe related to jarring motion when biking. He was just in the ED about a week ago w c/o abd pain symptoms associated w nausea, vomiting, weight loss of 60 lbs since August 2019. Pt also reportedly had flu like symptoms a few week ago, outpt COVID 19 testing negative. On eval during this admission it is noted he has new anemia. Blood ct a week ago was normal (H/H 15/46), last night it was 10/30. Plt, PT/INR normal. Pt denies any signs of hematemesis, coffee ground emesis when he had n/v last week. He did notice reddish stool x 1 episode 2 weeks ago but no dark/tarry appearance of stools or shabbir rectal bleeding hx. He currently denies any abd pain. N/V had resolved since he stopped "all meds" 2 days ago. He noticed his appetite start to improve as well. Denies hematuria or open/bleeding wounds. CT abd/pelvis w IV contrast showed R lateral abdominal wall subcutaneous contusion. Innumerable hypodense lesions seen scattered throughout the spleen which do not represent cysts, may be hemagioma/hamartomas. No retroperitoneal hematoma. He quit tobacco products in 1995, occasional ETOH use. + marijuana uses, also taking Goldenseal for "kidney flushes". He does take high doses of ASA 325mg BID + Diclofenac 75mg BID for L knee pain. Denies other NSAIDs. He denies any family hx of blood disorders. Colonoscopy 2017 - Tubular adenoma polyps, int hemorrhoids, recall in 2020 Allergies Allergy/AdvReac Type Severity Reaction Status Date / Time No Known Allergies Allergy Unverified 02/17/20 21:27 Home Medications Home Medications Medication Instructions Recorded Confirmed Type amlodipine 5 mg PO QAM 02/17/20 02/17/20 History ascorbic acid (vitamin C) [Vitamin 1 g PO DAILY 02/17/20 02/17/20 History C] benazepril 10 mg PO QAM 02/17/20 02/17/20 History diclofenac sodium 75 mg PO BID 02/17/20 02/17/20 History duloxetine 60 mg PO QAM 02/17/20 02/17/20 History ferrous sulfate 325 mg PO QAM 02/17/20 02/17/20 History folic acid 0.4 mg PO QAM 02/17/20 02/17/20 History melatonin 3 mg PO HS 02/17/20 02/17/20 History multivitamin 1 tab PO QAM 02/17/20 02/17/20 History omeprazole 20 mg PO QAM 02/17/20 02/17/20 History ondansetron HCl 4 mg PO TID PRN 02/17/20 02/17/20 History aspirin 325 mg PO BID 02/18/20 02/18/20 History Patient History Medical History Anxiety (Acute) GERD (gastroesophageal reflux disease) Hypertension (Acute) Social History Preferred Language: Tristanian Communication Ability: Effective Beliefs That Will Affect Care: None Feels Safe at Home: Yes Safety Concerns: Feels Safe At This Time Smoking Status: Current every day smoker Hx Alcohol Use: No Hx Substance Use: Yes substance use type: marijuana Last Used Substance: Hours (ago) Review of Systems Review of Systems: All systems reviewed & are unremarkable except as noted in HPI & below Physical Exam Constitutional: WD/WN, vitals as above well groomed, cooperative and comfortable Eyes: PERRL, conjunctivae normal, anicteric sclerae ENMT: external ear and nose normal, oropharynx normal Respiratory: normal respiratory effort, lungs clear to auscultation Cardiovascular: RRR, no murmur, no edema Gastrointestinal (Abdomen): normal bowel sounds, soft, nontender, no hepatosplenomegaly Skin: Large hematoma on R lower flank area extending to abd (RLQ) Neurologic: Motor/Sensory: no asterixis Psychiatric: A+Ox3, euthymic affect Lymphatic: no lymphedema Results & Data ([facility]) Vital Signs (Past 12 Hours) Vital Signs Temp Pulse Pulse Resp BP BP Pulse Ox 02/18/20 07:15 36.7 C 51 L 16 106/66 97 02/18/20 04:31 36.8 C 61 16 106/68 98 02/18/20 01:30 50 L 104/69 94 02/18/20 01:00 49 L 117/69 97 02/18/20 00:45 52 L 99/59 L 96 02/18/20 00:00 51 L 24 104/57 L 97 02/17/20 23:30 52 L 22 98/57 L 97 (1) Contusion of flank Encounter type: initial encounter Qualified Code(s): S30.1XXA - Contusion of abdominal wall, initial encounter (2) Anemia Anemia type: unspecified type Qualified Code(s): D64.9 - Anemia, unspecified
--- NOTE | 2020-02-18 11:26 | Anesthesiology Consultation ---
Date of Service February 18, 2020 Assessment & Plan (1) Encounter for pre-operative examination: History Height/Weight Height: 6 ft 2 in Weight: 89.499 kg Allergies Allergy/AdvReac Type Severity Reaction Status Date / Time No Known Allergies Allergy Unverified 02/17/20 21:27 Medications Home Medications Medication Instructions Recorded Confirmed Last Taken amlodipine 5 mg PO QAM 02/17/20 02/17/20 02/17/20 ascorbic acid (vitamin C) [Vitamin 1 g PO DAILY 02/17/20 02/17/20 02/17/20 C] benazepril 10 mg PO QAM 02/17/20 02/17/20 02/17/20 diclofenac sodium 75 mg PO BID 02/17/20 02/17/20 02/17/20 duloxetine 60 mg PO QAM 02/17/20 02/17/20 02/17/20 ferrous sulfate 325 mg PO QAM 02/17/20 02/17/20 02/17/20 folic acid 0.4 mg PO QAM 02/17/20 02/17/20 02/17/20 melatonin 3 mg PO HS 02/17/20 02/17/20 02/17/20 multivitamin 1 tab PO QAM 02/17/20 02/17/20 02/17/20 omeprazole 20 mg PO QAM 02/17/20 02/17/20 02/17/20 ondansetron HCl 4 mg PO TID PRN 02/17/20 02/17/20 02/17/20 aspirin 325 mg PO BID 02/18/20 02/18/20 Unknown Active Medications Generic Name Dose Route Start Last Admin Trade Name Ping PRN Reason Stop Dose Admin Amlodipine Besylate 5 mg 02/18/20 09:00 02/18/20 08:10 Norvasc PO 03/19/20 08:59 5 mg QAM BUZZ Administration Ascorbic Acid 1,000 mg 02/18/20 09:00 02/18/20 08:09 Vitamin C PO 03/19/20 08:59 1,000 mg DAILY BUZZ Administration Duloxetine HCl 60 mg 02/18/20 09:00 02/18/20 08:09 Cymbalta PO 03/19/20 08:59 60 mg QAM BUZZ Administration Enalapril Maleate 10 mg 02/18/20 09:00 02/18/20 08:09 Vasotec PO 03/19/20 08:59 10 mg QAM BUZZ Administration Ferrous Sulfate 325 mg 02/18/20 09:00 02/18/20 08:10 Feosol PO 03/19/20 08:59 325 mg QAM BZUZ Administration Folic Acid 400 mcg 02/18/20 09:00 02/18/20 08:10 Folvite PO 03/19/20 08:59 400 mcg QAM BUZZ Administration Pantoprazole Sodium 40 mg/ 10 mls @ 5 mls/min 02/18/20 03:09 02/18/20 09:36 Syringe IV 03/19/20 03:08 5 mls/min BID BUZZ Administration Multivitamins 1 tab 02/18/20 09:00 02/18/20 08:10 Multivitamin Tab PO 03/19/20 08:59 1 tab QAM BUZZ Administration Past Medical History Medical History Anxiety (Acute) GERD (gastroesophageal reflux disease) Hypertension (Acute) Social History Smoking Status: Current every day smoker Hx Alcohol Use: No Hx Substance Use: Yes substance use type: marijuana Physical Exam Vital Signs Last Vital Signs Temp 36.7 C 02/18/20 11:13 Pulse 46 L 02/18/20 11:13 Resp 16 02/18/20 11:13 BP 107/68 02/18/20 11:13 Pulse Ox 96 02/18/20 11:13 Testing Laboratory Results 02/18/20 06:00 02/18/20 06:00 PT 9.8 Seconds (9.0-12.0) 02/17/20 20:32 INR 0.9 (0.9-1.1) 02/17/20 20:32 APTT 27.9 Seconds (21.0-31.0) 02/17/20 20:32 Blood Type B Positive 02/17/20 21:40 Antibody Screen NEGATIVE 02/17/20 21:40
--- NOTE | 2020-02-18 14:35 | Communication Note ---
Date of Service: February 18, 2020 The patient was admitted early this morning with right flank spontaneous bruising with decreasing hemoglobin from 15-10 range. Complains to have stomach upset and poor appetite with weight loss. No melena recently and only one episode of black stool in the past. Has been on aspirin 325 mg twice daily on top of occasional diclofenac sodium for pain. Remains stable hemodynamically Appreciate GI input and recommendation We will check labs and electrolytes tomorrow Dr Heraclio Rodriguez
[2020-02-18] MEDS ORDERED: MELATONIN 3 MG TAB PO SCH (21:00)
[2020-02-19 08:11] LABS: Basophils # (auto) 0.03 K/uL (0-0.2); Basophils % (auto) 0.5 %; Eosinophils # (auto) 0.22 K/uL (0-0.5); Eosinophils % (auto) 3.4 %; Hemoglobin 12.5 g/dL (14.0-18.0); Immature Granulocytes # (auto) 0.03 K/uL (0.00-0.02); Immature Granulocytes % (auto) 0.5 %; Lymphocytes # (auto) 1.15 K/uL (1.2-3.4); Mean Corpuscular Hemoglobin 28.7 pg (25-34); Mean Corpuscular Hgb Conc 33.8 g/dL (32-36); Mean Corpuscular Volume 85.1 fL (80-100); Mean Platelet Volume 10.1 fL (7.4-10.4); Monocytes # (auto) 0.45 K/uL (0.11-0.59); Monocytes % (auto) 7.1 %; Neutrophils % (auto) 70.5 %; Platelet Count 267 K/uL (130-400); RDW Coefficient of Variation 13.8 % (11.5-14.5); RDW Standard Deviation 42.9 fL (36.4-46.3); Red Blood Count 4.35 M/uL (4.7-6.1); White Blood Count 6.38 K/uL (4.8-10.8)
[2020-02-19] MEDS: FERROUS SULFATE 325 MG TAB PO SCH (08:18)
[2020-02-19] MEDS: DULOXETINE HCL 60 MG CAP PO SCH (08:18)
[2020-02-19] MEDS: ASCORBIC ACID 500 MG TAB PO SCH (08:18)
[2020-02-19] MEDS: ENALAPRIL MALEATE 10 MG TAB PO SCH (08:19)
[2020-02-19] MEDS: FOLIC ACID 400 MCG TAB PO SCH (08:19)
[2020-02-19] MEDS: AMLODIPINE BESYLATE 5 MG TAB PO SCH (08:19)
[2020-02-19] MEDS: MULTIVITAMIN TAB PO SCH (08:19)
[2020-02-19] MEDS: PANTOprazole 40 MG in SYRINGE 0 ML IV SCH (08:20)
[2020-02-19 08:47] LABS: BUN Creatinine Ratio 14.8 (10-20); Calcium 8.9 mg/dl (8.5-10.1); Creatinine Clr Calc Pharmacy 128.4 ml/min; Est GFR (African American) 118.3; Est GFR (Non-African American) 102.1; Potassium 3.8 mmol/L (3.5-5.1)
--- NOTE | 2020-02-19 11:10 | Hospitalist Progress Note ---
Date of Service February 19, 2020 Assessment & Plan (1) Abnormal bruising: Large bruising involving the right flank and adjoining area of abdomen and groin Noticed to have upper back pain following riding bike before this bruising Likely causes of his spontaneous bruising his use of aspirin and NSAIDs No pain and/or increasing bruising in the hospital Hemoglobin remains stable (2) Dyspepsia: Has been complaining of dyspeptic symptoms for a long time Likely cause pain use of too much NSAID use including aspirin No history of hematemesis and/or melena Did have some nonspecific abdominal pain at presentation Symptoms are better with PPI Appreciate GI input and recommendation (3) Weight loss: Has significant weight loss for the last 6 months With poor appetite and dyspeptic symptoms (4) Anxiety: Has significant anxiety disorder Reasonably controlled with medication No acute delirium Admission and Anticipated Discharge Date Admission Date: February 18, 2020 Subjective The patient was seen and examined in medical telemetry unit He denies any complaints as of today His bruising in the right flank has not increased and dyspeptic symptoms have improved He will be discharged home this afternoon Review of Systems Review of Systems: All systems reviewed and are unremarkable except as noted below Gastrointestinal: no abdominal pain, no bloating, no nausea and no vomiting Integumentary: + unusual bruising (Right flank) Right flank bruising Physical Exam Physical Exam: Lying in bed comfortably Constitutional: well developed and well nourished; no acute distress and not ill appearing Eyes: PERRL, conjunctivae normal, anicteric sclerae ENMT: external ear and nose normal, oropharynx normal Neck: trachea midline, no thyromegaly Respiratory: normal respiratory effort; no respiratory distress Auscultation: lungs clear to auscultation bilaterally Cardiovascular: Rate/Rhythm: regular rate and regular rhythm Heart Sounds: no murmur Gastrointestinal (Abdomen): Inspection/Auscultation: abdomen normal to inspection and normal bowel sounds Percussion/Palpation: abdomen soft; a bdomen nontender Large right flank bruising which is stable Musculoskeletal: No acute arthritis involving any joint Neurologic: moves all extremities; no focal motor deficits Lymphatic: no cervical or axillary lymphadenopathy Results & Data Results & Data ([facility]) Vital Signs (Past 12 Hours) Vital Signs Temp Pulse Resp BP Pulse Ox 02/18/20 23:50 37.2 C 48 L 15 98/59 L 96 Laboratory Results Short CBC 02/19/20 Range/Units 07:36 WBC 6.38 (4.8-10.8) K/uL Hgb 12.5 L (14.0-18.0) g/dL Hct 37.0 L (42-52) % Plt Count 267 (130-400) K/uL [facility] 02/19/20 07:36 Sodium 139 Potassium 3.8 Chloride 107 Carbon Dioxide 28 BUN 11 Creatinine 0.72 Glucose 94 Calcium 8.9 Medications Administered Current Inpatient Medications Acetaminophen (Tylenol) 650 mg PO Q4H PRN PRN Reason: pain/fever Stop: 03/19/20 03:08 Amlodipine Besylate (Norvasc) 5 mg PO [facility] Stop: 03/19/20 08:59 Last Admin: 02/19/20 08:19 Dose: 5 mg Documented by: Ascorbic Acid (Vitamin C) 1,000 mg PO DAILY [facility] Stop: 03/19/20 08:59 Last Admin: 02/19/20 08:18 Dose: 1,000 mg Documented by: Duloxetine [facility] (Cymbalta) [facility] Stop: 03/19/20 08:59 Last Admin: 02/19/20 08:18 Dose: 60 mg Documented by: Enalapril Maleate (Vasotec) 10 [facility] Stop: 03/19/20 08:59 Last Admin: 02/19/20 08:19 Dose: 10 mg Documented by: Ferrous Sulfate (Feosol) 325 mg PO QAM [facility] Stop: 03/19/20 08:59 Last Admin: 02/19/20 08:18 Dose: 325 mg Documented by: Folic Acid (Folvite) 400 mcg PO [facility] Stop: 03/19/20 08:59 Last Admin: 02/19/20 08:19 Dose: 400 mcg Documented by: Pantoprazole Sodium 40 mg/ (Syringe) 10 mls @ 5 mls/min IV BID BUZZ Stop: 03/19/20 03:08 Last Admin: 02/19/20 08:20 Dose: 5 mls/min Documented by: Melatonin (Melatonin) 3 mg PO HS [facility] Stop: 03/19/20 20:59 Last Admin: 02/18/20 20:41 Dose: 3 mg Documented by: Multivitamins (Multivitamin Tab) 1 tab [facility] Stop: 06/28/20 08:59 Last Admin: 02/19/20 08:19 Dose: 1 tab Documented by: Ondansetron HCl (Zofran) 4 mg IV Q6H PRN PRN Reason: Nausea Stop: 03/19/20 03:08 Polyethylene Glycol (Miralax Powder Packet) 17 gm PO DAILY PRN PRN Reason: Constipation Stop: 03/19/20 03:08
--- NOTE | 2020-02-20 07:27 | Discharge Summary ---
Date of Service February 20, 2020 Admission HPI Per Admitting Provider DICTATED BY: Aleks Rangel MD DATE OF ADMISSION: 02/18/2020 CHIEF COMPLAINT: Bruise in his abdomen. HISTORY OF PRESENT ILLNESS: This is a 59-year-old male with past medical history significant for hypertension, plantar fascitis, primary osteoarthritis of both knees, cannabis dependence, medical marijuana use, mood disorder, presents with a bruise on his right flank region. The patient was in the ER on 02/10/2020 complaining of abdominal discomfort. At that time, labs were all fine and he was discharged. At that time, his hemoglobin was 15.9. The patient states since then he was having lot of nausea, abdominal discomfort, so he did not take his pills and he did not take food for 2 or 3 days, but he started taking his pills again 2 days back. On morning, he went for bike ride and when he came up, he noticed some pain and discomfort in his right flank region and noticed a bruise coming up there and that is the reason he came to the ER. His hemoglobin has dropped down to 10.2. Denies any blood in the stools or black stools. He takes iron tablets. He is on aspirin 325 mg p.o. b.i.d. He is taking 2 tablets of aspirin since his knee surgery in October of 2018. He is also on diclofenac sodium 75 mg p.o. b.i.d. He has some back discomfort. Otherwise, denies any other complaints. No chest pain, no shortness of breath, no cough, no fever, no chills. Has some mild headache, no blurred visions, no earache, no runny nose, no sore throat. Normal bladder movements. Ambulating okay. He lives with a roommate who works at [employer]. Recently on 02/04/2020, he was tested for COVID because of possible exposure at work place and some flu-like symptoms, but it was negative. Admission Exam Per Admitting Provider GENERAL: The patient is of moderate build, not in acute distress. VITAL SIGNS: Temperature 37, pulse 50, respiratory rate 24, blood pressure 104/69, oxygen 94% on room air. HEENT: Pupils equal, round, reactive to light. NECK: No JVD. No neck masses seen. CARDIOVASCULAR: S1, S2 heard, regular rate and rhythm, no murmur, no gallop. RESPIRATORY SYSTEM: Normal AP diameter. No accessory muscle use. No wheezing, no crackles. ABDOMEN: Soft, bowel sounds present. Does have mild tenderness in the epigastric and periumbilical region. Significant bruise seen in the right flank region extending into the anterior part of the abdomen. CENTRAL NERVOUS SYSTEM: Cranial nerves II-XII grossly intact. Nonfocal. EXTREMITIES: No edema, no erythema. Principal Diagnosis Spontaneous right flank bruising, dyspepsia likely secondary to use of NSAID use Discharge Exam Constitutional well developed and well nourished; no acute distress and not ill appearing Eyes PERRL, conjunctivae normal, anicteric sclerae ENMT external ear and nose normal, oropharynx normal Neck trachea midline, no thyromegaly Respiratory normal respiratory effort; no respiratory distress Auscultation: lungs clear to auscultation bilaterally Cardiovascular Rate/Rhythm: regular rate and regular rhythm Heart Sounds: no murmur Gastrointestinal (Abdomen) Inspection/Auscultation: abdomen normal to inspection and normal bowel sounds Percussion/Palpation: abdomen soft; abdomen nontender Neurologic moves all extremities; no focal motor deficits Lymphatic no cervical or axillary lymphadenopathy Discharge Data Allergies Allergy/AdvReac Type Severity Reaction Status Date / Time No Known Allergies Allergy Unverified 02/17/20 21:27 Consultations 02/18/20 01:10 ED Decision to Admit Stat 02/18/20 03:09 Consult Case Management - Discharge Planning Routine 02/18/20 10:21 Consult Gastroenterology Routine Procedures Performed Operation Date: 02/18/20 15:30 <No data on this case meets the specified criteria> Ordered Studies 02/17/20 20:17 CT abd pelvis IV con only Urgent Hospital Course (1) Abnormal bruising: Large bruising involving the right flank and adjoining area of abdomen and groin Noticed to have upper back pain following riding bike before this bruising Likely causes of his spontaneous bruising his use of aspirin and NSAIDs No pain and/or increasing bruising in the hospital Hemoglobin remains stable (2) Dyspepsia: Has been complaining of dyspeptic symptoms for a long time Likely cause pain use of too much NSAID use including aspirin No history of hematemesis and/or melena Did have some nonspecific abdominal pain at presentation Symptoms are better with PPI Appreciate GI input and recommendation (3) Weight loss: Has significant weight loss for the last 6 months With poor appetite and dyspeptic symptoms (4) Anxiety: Has significant anxiety disorder Reasonably controlled with medication No acute delirium Total Time Total Time Spent Total Time Spent (In Minutes): 35 minutes Total Time Includes: Examination of the Patient, Discharge Planning, Medication Reconciliation and Communication With Other Providers Discharge Plan Discharge Items Patient Disposition: Home - Self-Care Reason For Visit: ABDOMINAL BRUISE Discharge Diagnosis: Spontaneous right flank bruising, dyspepsia likely secondary to use of NSAID use Condition on Discharge: Good Activity: Resume your previous activity Non-emergency contact: Primary Care Provider Call non-emergency contact if: you have any medication questions Follow-up/Referrals: Asiya Mcclellan DO [Primary Care Provider] - (Your doctor's office will give you a call on Friday with an appointment. [facility] gastroenterology service will call you for evaluation of endoscopy) Diet: Regular Addtl Attending Provider Instructions: Do not use anymore NSAID use and/or aspirin Pending Studies at Discharge: No Stand-Alone Forms: My [employer], Smoking Cessation Medications and DC Order Prescriptions: Continued multivitamin Tablet 1 tab PO QAM RF: 0 ondansetron HCl 4 mg tablet 4 mg PO TID PRN (Reason: Nausea) RF: 0 melatonin 3 mg tablet 3 mg PO HS RF: 0 amlodipine 5 mg tablet 5 mg PO QAM RF: 0 ferrous sulfate 325 mg (65 mg iron) Tablet 325 mg PO QAM RF: 0 omeprazole 20 mg capsule,delayed release(DR/EC) 20 mg PO QAM RF: 0 benazepril 10 mg tablet 10 mg PO QAM RF: 0 folic acid 800 mcg Tablet 0.4 mg PO QAM RF: 0 duloxetine 60 mg capsule,delayed release(DR/EC) 60 mg PO QAM RF: 0 Discontinued ascorbic acid (vitamin C) [Vitamin C] 1,000 mg Tablet 1 g PO DAILY RF: 0 diclofenac sodium 75 mg tablet,delayed release (DR/EC) 75 mg PO BID RF: 0 aspirin 325 mg Tablet 325 mg PO BID RF: 0 Discharge Orders: Discharge Order (Routine); Ordered 02/19/20 Ordered By: Estuardo Rodriguez Admission Data Admit Date/Time: 02/18/20 15:50 Attending Provider: Estuardo Rodriguez Admit Provider: Aleks Rangel Primary Care Provider: Asiya Mcclellan Other Providers: Aleks Rangel ; Gabbie Lilly Other Interventions: Discharge Summary Assessment (RN) Last Done: 02/19/20 11:48 DC Date/Time DO NOT enter until pt leaves facility: 02/19/20 13:10
== END 2020-02-19 13:10 | disposition home or self-care (01) ==
LOC: ED 19:46 → 2N 19:46

== ENCOUNTER 2022-11-19 18:11 | Observation (INO) ==
[2022-11-19] MEDS ORDERED: SODIUM CHLORIDE 0.9% 500 ML IV STA (18:53)
--- NOTE | 2022-11-19 19:15 | Emergency Department Note ---
Impression & Plan Atrial fibrillation, new onset ED Provider Note NAME: WILL JAIN JR AGE: 62 SEX: M : 1960 ARRIVES VIA: Ambulance INFORMANT: Patient, ED PROVIDER(S): Rolando Borrego DO CHIEF COMPLAINT: Shortness of breath HPI: The patient is a 62-year-old male who presented to the emergency department directly from his primary care physician's office. The patient went to see his primary care physician today for routine visit. He states he was not really complaining of anything in particular. When the patient was in the office he was noted to have ectopy to auscultation. An EKG was obtained which showed atrial fibrillation. This would be a new diagnosis for the patient. For this reason he was sent by ambulance for further evaluation to the emergency department. The patient states he does have slight shortness of breath with exertion but denies having any chest pain or lower extremity swelling. He does not have a history of alcohol abuse. ROS: See above HPI for pertinent positives & negatives. A total of 10 systems reviewed and were otherwise negative. PAST MEDICAL HISTORY: See Below PAST SURGICAL HISTORY: See Below FAMILY HISTORY: See Below SOCIAL HISTORY: See Below HOME MEDICATIONS: See Below ALLERGIES: See Below VITALS: See Below PHYSICAL EXAMINATION: GENERAL: Patient is awake alert in no acute distress patient is resting comfortably and showing no signs of anxiety EYES: The conjunctivae are clear. The pupils are round and reactive. EARS, NOSE, MOUTH AND THROAT: The nose is without any evidence of any deformity. NECK: The neck is nontender and supple. RESPIRATORY: Normal respiratory effort is noted there is no evidence of wheezing rhonchi or rales CARDIOVASCULAR: Irregular heart sounds were noted to auscultation. There is no definite murmur. GASTROINTESTINAL: The abdomen is soft. Abdomen is nontender. MUSCULOSKELETAL/EXTREMITIES: There is no evidence of gross deformity full range of motion is noted in the hips and shoulders. SKIN: There is no obvious evidence of any rash. There are no petechiae, pallor or cyanosis noted. NEUROLOGIC: Patient is awake alert and oriented x3 strength is symmetric patellar reflexes are 2+ bilaterally MEDICAL DECISION MAKING: The patient is a 62-year-old male who presented to the emergency department from his primary care physician's office by ambulance. The patient was found to have atrial fibrillation by his primary care physician. This is a new diagnosis and he is never had this before. The patient did not require rate control. I will defer anticoagulation to the admitting team. I discussed the patient's condition with the on-call [facility]ist. They have agreed to evaluate patient in the emergency department. Triage Nursing notes reviewed. Prior medical records reviewed Vital Signs: reviewed and remarkable for no significant abnormalities Differential diagnosis: Premature contractions, electrolyte abnormality, cardiac dysrhythmia, thyroid dysfunction, pulmonary embolism, infection, gastrointestinal, as well as other pathologies. ER treatment provided: See below Diagnostics interpreted by me: ECG: EKG was obtained in the emergency department. My interpretation is atrial fibrillation at 83 bpm. There were no acute ST segment abnormalities noted. This was compared to a tracing from June 08, 2020. The previous tracing had sinus rhythm which has not been replaced with atrial fibrillation. Cardiac Monitoring: An order was placed for continuous cardiac monitoring. The monitor shows a rate of 61 bpm with atrial fibrillation Laboratory studies: As stated above and show below. Imaging studies: See below. Radiographic imaging was reviewed by myself Consultation(s): The [facility] hospitalist, Dr. Carey was consulted and will evaluate the patient. Past Med/Surg History Medical History Anxiety Contusion of flank (~2019) GERD (gastroesophageal reflux disease) Hernia Hypertension Surgical History H/O colonoscopy 04/24/2020 H/O right inguinal hernia repair History of left knee replacement History of surgery on left wrist Hx of tonsillectomy Family History Father Hypertension Crohn's disease Mother Breast cancer Denies family history of Ovarian cancer Prostate cancer Lung cancer Colorectal cancer Social History Smoking Status: Never smoker Second Hand Exposure: No; Hx Alcohol Use: No Hx Substance Use: Yes ([facility]) Prescribed Medications: Marijuana Last Used Substance: Hours (ago) Preferred Language: Vietnamese Communication Ability: Effective Visual Impairment: Limited Hearing Ability: Normal Beliefs That Will Affect Care: None marital status: Single Current Living Situation: Other Current Living Situation Comment: room mate current occupational status: disabled How many Children do You have: 0 Feels Safe at Home: Yes Childhood Exposure to Second-Hand Smoke: No caffeine: Yes during the past year weight has: remained stable Dental Care, Regularly: No Physical Activity Frequency: Daily Seatbelt Use: always Sunscreen Use: No Assistive Devices: None and Glasses Allergies Allergies Allergy/AdvReac Type Severity Reaction Status Date / Time No Known Allergies Allergy Verified 11/19/22 18:57 Home Meds Home Medications Medication Instructions Recorded Confirmed multivitamin 1 tab PO QAM 02/17/20 11/19/22 melatonin 10 mg tablet 10 mg PO HS 11/19/22 11/19/22 omeprazole 20 mg delayed 20 mg PO DAILY 11/19/22 11/19/22 release,disintegrating tablet Previous Rx's Medication Instructions Recorded benazepril 10 mg tablet 10 mg PO QAM #90 tabs 08/06/22 amlodipine 5 mg tablet 5 mg PO QAM #90 tabs 10/31/22 Results & Data (ED) Vital Signs Vital Signs - 24 hr 11/19/22 18:14 11/19/22 18:23 11/19/22 18:29 Temperature 37.3 C Temperature Source Oral Pulse Rate 86 77 Pulse Rate from SpO2 Sensor Respiratory Rate 12 Respiratory Effort / Characteristics Non-Labored Spontaneous Respiratory Depth Normal Blood Pressure 125/98 Blood Pressure Mean 107 Pulse Oximetry 98 Oxygen Delivery Method Room Air Room Air Sepsis Recent Fever Within 48 Hours No Sepsis New/Unexplained Change in Mental Status No Sepsis Action Taken by Nursing No Action Required 11/19/22 18:29 11/19/22 18:30 11/19/22 18:40 Temperature Temperature Source Pulse Rate 79 86 87 Pulse Rate from SpO2 Sensor 82 79 80 Respiratory Rate 13 20 16 Respiratory Effort / Characteristics Respiratory Depth Blood Pressure Blood Pressure Mean Pulse Oximetry 98 98 92 Oxygen Delivery Method Sepsis Recent Fever Within 48 Hours Sepsis New/Unexplained Change in Mental Status Sepsis Action Taken by Nursing 11/19/22 18:50 11/19/22 19:00 11/19/22 19:00 Temperature Temperature Source Pulse Rate 77 89 Pulse Rate from SpO2 Sensor 78 85 Respiratory Rate 21 21 Respiratory Effort / Characteristics Respiratory Depth Blood Pressure 135/101 H Blood Pressure Mean 112 Pulse Oximetry 97 98 Oxygen Delivery Method Sepsis Recent Fever Within 48 Hours Sepsis New/Unexplained Change in Mental Status Sepsis Action Taken by Nursing 11/19/22 19:10 11/19/22 19:20 11/19/22 19:30 Temperature Temperature Source Pulse Rate 69 75 80 Pulse Rate from SpO2 Sensor 74 75 83 Respiratory Rate 24 18 14 Respiratory Effort / Characteristics Respiratory Depth Blood Pressure Blood Pressure Mean Pulse Oximetry 95 98 93 Oxygen Delivery Method Sepsis Recent Fever Within 48 Hours Sepsis New/Unexplained Change in Mental Status Sepsis Action Taken by Nursing 11/19/22 19:40 11/19/22 19:50 11/19/22 20:00 Temperature Temperature Source Pulse Rate 82 78 71 Pulse Rate from SpO2 Sensor 81 75 72 Respiratory Rate 21 24 23 Respiratory Effort / Characteristics Respiratory Depth Blood Pressure Blood Pressure Mean Pulse Oximetry 95 95 96 Oxygen Delivery Method Sepsis Recent Fever Within 48 Hours Sepsis New/Unexplained Change in Mental Status Sepsis Action Taken by Nursing 11/19/22 20:01 11/19/22 20:01 11/19/22 20:10 Temperature Temperature Source Pulse Rate 75 71 Pulse Rate from SpO2 Sensor 73 68 Respiratory Rate 21 26 H Respiratory Effort / Characteristics Respiratory Depth Blood Pressure 115/79 Blood Pressure Mean 91 Pulse Oximetry 96 96 Oxygen Delivery Method Sepsis Recent Fever Within 48 Hours Sepsis New/Unexplained Change in Mental Status Sepsis Action Taken by Nursing 11/19/22 20:20 11/19/22 20:30 11/19/22 20:40 Temperature Temperature Source Pulse Rate 64 74 61 Pulse Rate from SpO2 Sensor 69 69 67 Respiratory Rate 21 18 23 Respiratory Effort / Characteristics Respiratory Depth Blood Pressure Blood Pressure Mean Pulse Oximetry 97 96 95 Oxygen Delivery Method Sepsis Recent Fever Within 48 Hours Sepsis New/Unexplained Change in Mental Status Sepsis Action Taken by Nursing 11/19/22 20:50 11/19/22 21:00 11/19/22 21:00 Temperature Temperature Source Pulse Rate 65 70 Pulse Rate from SpO2 Sensor 68 67 Respiratory Rate 24 20 Respiratory Effort / Characteristics Respiratory Depth Blood Pressure 110/90 Blood Pressure Mean 96 Pulse Oximetry 96 96 Oxygen Delivery Method Sepsis Recent Fever Within 48 Hours Sepsis New/Unexplained Change in Mental Status Sepsis Action Taken by Nursing 11/19/22 21:10 11/19/22 21:20 Temperature Temperature Source Pulse Rate 71 61 Pulse Rate from SpO2 Sensor 76 60 Respiratory Rate 20 25 H Respiratory Effort / Characteristics Respiratory Depth Blood Pressure Blood Pressure Mean Pulse Oximetry 96 96 Oxygen Delivery Method Sepsis Recent Fever Within 48 Hours Sepsis New/Unexplained Change in Mental Status Sepsis Action Taken by Long Term Medications Current Medication List: was personally reviewed by me Laboratory Data Attestation: I reviewed the patient's lab results. 11/19/22 18:15 11/19/22 18:15 Lab Results 11/19/22 11/19/22 11/19/22 Range/Units 18:15 18:15 18:15 WBC 10.64 (4.8-10.8) K/ul RBC 5.01 (4.70-6.10) M/uL Hgb 14.8 (14.0-18.0) g/dl Hct 42.8 (42.0-52.0) % MCV 85.4 (80.0-100.0) fL MCH 29.5 (25.0-34.0) pg MCHC 34.6 (32.0-36.0) g/dL RDW Std Deviation 42.2 (36.4-46.3) fL RDW Coeff of Haleigh 13.5 (11.5-14.5) % Plt Count 226 (130-400) K/uL MPV 10.9 (9.4-12.4) fL Immature Gran % (Auto) 0.5 % Neut % (Auto) 68.3 % Lymph % (Auto) 20.9 % [place] % (Auto) 7.3 % Eos % (Auto) 2.5 % Baso % (Auto) 0.5 % Neut # (Auto) 7.27 H (1.40-6.50) K/uL Lymph # (Auto) 2.22 (1.2-3.4) K/uL [place] # (Auto) 0.78 H (0.11-0.59) K/uL Eos # (Auto) 0.27 (0-0.50) K/uL Baso # (Auto) 0.05 (0-0.2) K/uL Immature Gran # (Auto) 0.05 (0.01-0.20) K/uL PT 10.3 (9.0-12.0) Seconds INR 1.0 (0.9-1.1) APTT 27.9 (21.0-31.0) Seconds PTT Ratio 1.0 Sodium 142 (136-145) mmol/L Potassium 4.0 (3.5-5.1) mmol/L Chloride 110 H (98-107) mmol/L Carbon Dioxide 28 (21-32) mmol/L Anion Gap 4 (3-11) BUN 16 (6-23) mg/dl Creatinine 0.97 (0.6-1.4) mg/dl Est Cr Clr Drug Dosing 96.5 ml/min Est GFR ( Amer) 96.6 ml/min Est GFR (Non-Af Amer) 83.3 ml/min BUN/Creatinine Ratio 16.5 (10-20) Glucose 93 (70-99(Fasting)) mg/dl Calcium 9.0 (8.5-10.1) mg/dl Magnesium 2.0 (1.7-2.4) mg/dl Total Bilirubin 0.4 (0.2-1.0) mg/dl AST 15 (13-39) U/L ALT 11 (7-52) U/L Alkaline Phosphatase 61 (34-104) U/L Troponin I High Sens 5.2 (0-20) pg/ml Total Protein 6.7 (6.0-8.3) gm/dl Albumin 4.2 (3.4-5.0) gm/dl Globulin 2.5 (2.5-4.0) gm/dl Albumin/Globulin Ratio 1.7 (0.9-2) TSH (0.300-4.500) uIu/ml SARS-CoV-2, RNA, NAAT (NEGATIVE) 11/19/22 11/19/22 Range/Units 18:15 20:30 WBC (4.8-10.8) K/ul RBC (4.70-6.10) M/uL Hgb (14.0-18.0) g/dl Hct (42.0-52.0) % MCV (80.0-100.0) fL MCH (25.0-34.0) pg MCHC (32.0-36.0) g/dL RDW Std Deviation (36.4-46.3) fL RDW Coeff of Haleigh (11.5-14.5) % Plt Count (130-400) K/uL MPV (9.4-12.4) fL Immature Gran % (Auto) % Neut % (Auto) % Lymph % (Auto) % [place] % (Auto) % Eos % (Auto) % Baso % (Auto) % Neut # (Auto) (1.40-6.50) K/uL Lymph # (Auto) (1.2-3.4) K/uL [place] # (Auto) (0.11-0.59) K/uL Eos # (Auto) (0-0.50) K/uL Baso # (Auto) (0-0.2) K/uL Immature Gran # (Auto) (0.01-0.20) K/uL PT (9.0-12.0) Seconds INR (0.9-1.1) APTT (21.0-31.0) Seconds PTT Ratio Sodium (136-145) mmol/L Potassium (3.5-5.1) mmol/L Chloride (98-107) mmol/L Carbon Dioxide (21-32) mmol/L Anion Gap (3-11) BUN (6-23) mg/dl Creatinine (0.6-1.4) mg/dl Est Cr Clr Drug Dosing ml/min Est GFR ( Amer) ml/min Est GFR (Non-Af Amer) ml/min BUN/Creatinine Ratio (10-20) Glucose (70-99(Fasting)) mg/dl Calcium (8.5-10.1) mg/dl Magnesium (1.7-2.4) mg/dl Total Bilirubin (0.2-1.0) mg/dl AST (13-39) U/L ALT (7-52) U/L Alkaline Phosphatase (34-104) U/L Troponin I High Sens (0-20) pg/ml Total Protein (6.0-8.3) gm/dl Albumin (3.4-5.0) gm/dl Globulin (2.5-4.0) gm/dl Albumin/Globulin Ratio (0.9-2) TSH 1.548 (0.300-4.500) uIu/ml SARS-CoV-2, RNA, NAAT NEGATIVE (NEGATIVE) Administered Medications Discontinued Medications Sodium Chloride (Nss) 500 mls @ 999 mls/hr IV .Q31M STA Stop: 11/19/22 19:23 Last Infusion: 11/19/22 20:31 Dose: 0 mls/hr Documented By: Admin: 11/19/22 19:16 Dose: 999 mls/hr Documented By: DEBBIE Imaging Data Attestation: I personally reviewed and interpreted this imaging study as follows: My Impression: 1 view chest x-ray was obtained in the emergency department. My interpretation is no acute disease, no infiltrate, no free air. Radiologist's Impression: Chest X-Ray 11/19/22 18:53 XR chest 1V portable CLINICAL HISTORY: Dysrhythmia COMPARISON STUDY: Chest radiograph February 17, 2020. FINDINGS: Lung volumes are normal. Lungs are clear. There is no pneumothorax or pleural effusion. Mild cardiomegaly is noted. Mediastinal contours are normal. There is no evidence for pulmonary edema. IMPRESSION: No acute cardiopulmonary findings. Cardiomegaly. ACT 112: Negative or not required by law. Electronically signed by: Carter Shoemaker M.D. 11/19/2022 7:31 PM Discharge Plan Visit Data Chief Complaint: Cardiac Assessment Stated Complaint: CARDIAC ASSESSMENT ED Provider: Rolando Borrego Discharge Problem: Atrial fibrillation, new onset Patient Disposition: Being Evaluated by Hospitalist Forms Stand Alone Forms: [facility] Prescriptions Prescriptions: No Action benazepril 10 mg tablet 10 mg PO QAM Qty: 90 3RF amlodipine 5 mg tablet 5 mg PO QAM Qty: 90 3RF multivitamin Tablet 1 tab PO QAM omeprazole 20 mg Tablet,Disintegrat, Delay Rel 20 mg PO DAILY melatonin 10 mg Tablet 10 mg PO HS Referrals Referrals: Angel Pimentel, [Primary Care Provider] -
[2022-11-19 19:21] LABS: Basophils # (auto) 0.05 K/uL (0-0.2); Basophils % (auto) 0.5 %; Eosinophils # (auto) 0.27 K/uL (0-0.50); Eosinophils % (auto) 2.5 %; Hematocrit (blood only) 42.8 % (42.0-52.0); Hemoglobin 14.8 g/dl (14.0-18.0); Immature Granulocytes # (auto) 0.05 K/uL (0.01-0.20); Immature Granulocytes % (auto) 0.5 %; Lymphocytes # (auto) 2.22 K/uL (1.2-3.4); Lymphocytes % (auto) 20.9 %; Mean Corpuscular Hemoglobin 29.5 pg (25.0-34.0); Mean Corpuscular Hgb Conc 34.6 g/dL (32.0-36.0); Mean Corpuscular Volume 85.4 fL (80.0-100.0); Mean Platelet Volume 10.9 fL (9.4-12.4); Monocytes # (auto) 0.78 K/uL (0.11-0.59); Monocytes % (auto) 7.3 %; Neutrophils # (auto) 7.27 K/uL (1.40-6.50); Neutrophils % (auto) 68.3 %; Platelet Count 226 K/uL (130-400); RDW Coefficient of Variation 13.5 % (11.5-14.5); RDW Standard Deviation 42.2 fL (36.4-46.3); Red Blood Count 5.01 M/uL (4.70-6.10); White Blood Count 10.64 K/ul (4.8-10.8)
--- NOTE | 2022-11-19 19:33 | XRay Report ---
XR chest 1V portable CLINICAL HISTORY: Dysrhythmia COMPARISON STUDY: Chest radiograph February 17, 2020. FINDINGS: Lung volumes are normal. Lungs are clear. There is no pneumothorax or pleural effusion. Mil d cardiomegaly is noted. Mediastinal contours are normal. There is no evidence for pulmonary edema. IMPRESSION: No acute cardiopulmonary findings. Cardiomegaly. ACT 112: Negative or not required by law. Electronically signed by: Carter Shoemaker M.D. 11/19/2022 7:31 PM
[2022-11-19 19:40] LABS: Albumin Globulin Ratio 1.7 (0.9-2); Albumin Level 4.2 gm/dl (3.4-5.0); BUN Creatinine Ratio 16.5 (10-20); Bilirubin,Total 0.4 mg/dl (0.2-1.0); Creatinine Clr Calc Pharmacy 96.5 ml/min; Est GFR (African American) 96.6 ml/min; Est GFR (Non-African American) 83.3 ml/min; Globulin 2.5 gm/dl (2.5-4.0); Total Protein 6.7 gm/dl (6.0-8.3)
[2022-11-19 19:43] LABS: Troponin I High Sensitivity 5.2 pg/ml (0-20)
[2022-11-19 19:48] LABS: Partial Thromboplastin Time 27.9 Seconds (21.0-31.0); Prothrombin Time 10.3 Seconds (9.0-12.0)
--- NOTE | 2022-11-19 20:09 | History & Physical Report ---
Date of Service November 19, 2022 Assessment & Plan (1) New onset atrial fibrillation: Plan: -New onset atrial fibrillation per EKG and monitor, likely triggered by recent bronchitis/viral URI -Lab workup unremarkable, TSH and troponin negative -CHADSVASC score of 1, deferring anticoagulation at present given low-risk -Currently rate-controlled, consider Lopressor PRN for tachycardia > 110s -Maintain Mg > 2, K > 4 -TTE ordered -Telemetry monitoring (2) Acute bronchitis: Plan: -Suspect viral process -Admission CXR normal -Saturating well on RA, stable respiratory status -Supportive care, benzonatate PRN- avoid Mucinex given atrial fibrillation (3) Hypertension: Plan: -BP stable on admission -Continue home amlodipine and benazepril (4) GERD (gastroesophageal reflux disease): Plan: -Continue omeprazole daily Plan FENGI: Regular diet Code status: Full DVT ppx: Low-risk, ambulation Isolation: None Dispo: Medical/surgical with telemetry History of Present Illness Chief Complaint: Difficulty breathing Primary Care Provider: Angel Pimentel, DO 62 yo M with PMH HTN, previous tobacco use history, GERD, chronic back pain with THC use presenting with new onset atrial fibrillation. Pt has been dealing with mild but worsening dyspnea and productive cough for past few weeks. He saw his PCP in office today for routine checkup and was noted to be in atrial fibrillation with HR 90 on EKG. He was sent over to ED for evaluation. Pt did not have any chest pain, lightheadedness, palpitations. Only endorsing exertional dyspnea. Pt arrived to ER hemodynamically stable. EKG w/ AF and rate of 83, no ST change identified. CBC, CMP, TSH, Mg, troponin, CXR unremarkable. Was given IVF repletion with NSS 500ccs. During my evaluation, pt denied any acute complaints aside from mild cough. He was noted on monitor to be in atrial fibrillation with rates 60s-70s, pulse O2 > 94%. Allergies Allergy/AdvReac Type Severity Reaction Status Date / Time No Known Allergies Allergy Verified 11/19/22 18:57 Home Medications Medication Instructions Recorded Confirmed Type multivitamin 1 tab PO QAM 02/17/20 11/19/22 History benazepril 10 mg tablet 10 mg PO QAM #90 tabs 11/15/22 02/28/23 Rx amlodipine 5 mg tablet 5 mg PO QAM #90 tabs 10/31/22 11/19/22 Rx melatonin 10 mg tablet 10 mg PO HS 11/19/22 11/19/22 History omeprazole 20 mg delayed 20 mg PO DAILY 11/19/22 11/19/22 History release,disintegrating tablet benzonatate 100 mg capsule 100 mg PO Q8H PRN cough 5 days #15 11/20/22 Rx caps metoprolol succinate 25 mg 25 mg PO DAILY 30 days #30 tabs 11/20/22 Rx tablet,extended release 24 hr Past Med/Surg History Medical History Anxiety Contusion of flank (~2019) GERD (gastroesophageal reflux disease) Hernia Hypertension Surgical History H/O colonoscopy 04/24/2020 H/O right inguinal hernia repair History of left knee replacement History of surgery on left wrist Hx of tonsillectomy Family History Father Hypertension Crohn's disease Mother Breast cancer Denies family history of Ovarian cancer Prostate cancer Lung cancer Colorectal cancer Social History Smoking Status: Former smoker Second Hand Exposure: No; Hx Alcohol Use: No Hx Substance Use: Yes Prescribed Medications: Marijuana Last Used Substance: Just Prior to Arrival Preferred Language: Croatian Communication Ability: Effective Visual Impairment: Limited Hearing Ability: Normal [employer] Required: No Beliefs That Will Affect Care: None marital status: Single Current Living Situation: Alone Current Living Situation Comment: lives in apartment current occupational status: disabled How many Children do You have: 0 Feels Safe at Home: Yes Childhood Exposure to Second-Hand Smoke: No caffeine: Yes during the past year weight has: remained stable Dental Care, Regularly: No Physical Activity Frequency: Daily Seatbelt Use: always Sunscreen Use: No Assistive Devices: None Review of Systems Review of Systems: Per HPI Physical Exam Physical Exam: General: well-appearing, no acute distress HEENT: Moist mucous membranes, EOMI, PERRLA CV: Irregular rhythm, normal rate, no murmurs noted Resp: Mild expiratory wheeze in upper lung abbasi, no crackles, good air entry b/l, no increased WOB Abd: soft, nontender, nondistended Neuro: no focal motor or sensory deficits, AOx3 Skin: no rashes, warm and dry Results & Data Results & Data ([facility]) Vital Signs (Past 12 Hours) Vital Signs Temp Pulse Resp BP Pulse Ox O2 Del Method 11/19/22 18:29 77 11/19/22 18:23 Room Air 11/19/22 18:14 37.3 C 86 12 125/98 98 Room Air Supervising Physician Co-Signing Physician Notes Attending addendum: I have physically seen this patient, have supervised the medical residents activities, and agree with the H&P unless as otherwise noted. Assessment and Plan: New onset atrial fibrillation/hypertension- The patient will be admitted to telemetry for serial cardiac enzymes, serial EKG's, cardiac rhythm monitoring and a 2-D echocardiogram with Dopplers. [id number] score 1, place on aspirin 81 mg daily Target potassium greater than or equal to 4, and magnesium greater than or equal to 2 Continue amlodipine and benazepril, but may need to decrease to increase from for negative inotrope metoprolol succinate 25 mg daily Consult cardiology Bronchitis- Symptomatic treatment Tessalon Perles as needed Mucinex without dextromethorphan GERD- Continue omeprazole/pantoprazole Remaining orders and notations as noted Resident Activity Tracking Resident Involvement: Resident Care Provided Care Provided: Adult Hospital Medicine
[2022-11-19] MEDS ORDERED: BENZONATATE 100 MG CAPSULE PO PRN (23:13)
[2022-11-20 06:33] LABS: Hematocrit (blood only) 44.7 % (42.0-52.0); Hemoglobin 15.9 g/dl (14.0-18.0); Mean Corpuscular Hemoglobin 29.4 pg (25.0-34.0); Mean Corpuscular Hgb Conc 35.6 g/dL (32.0-36.0); Mean Corpuscular Volume 82.6 fL (80.0-100.0); Mean Platelet Volume 10.9 fL (9.4-12.4); Platelet Count 220 K/uL (130-400); RDW Coefficient of Variation 13.5 % (11.5-14.5); RDW Standard Deviation 40.4 fL (36.4-46.3); Red Blood Count 5.41 M/uL (4.70-6.10)
[2022-11-20 06:46] LABS: BUN Creatinine Ratio 19.3 (10-20); Calcium 9.4 mg/dl (8.5-10.1); Creatinine Clr Calc Pharmacy 112.7 ml/min; Est GFR (African American) 109.3 ml/min; Est GFR (Non-African American) 94.3 ml/min; Potassium 4.4 mmol/L (3.5-5.1)
[2022-11-20] MEDS ORDERED: PANTOprazole 40 MG TAB PO SCH (09:00)
[2022-11-20] MEDS ORDERED: ENALAPRIL MALEATE 10 MG TAB PO SCH (09:00)
[2022-11-20] MEDS ORDERED: amLODIPine BESYLATE 5 MG TAB PO SCH (09:00)
--- NOTE | 2022-11-20 10:21 | Medical Student Progress Note ---
Date of Service November 20, 2022 Assessment & Plan (1) New onset atrial fibrillation: Plan: -New onset atrial fibrillation per EKG and monitor, likely triggered by recent bronchitis/viral URI -Lab workup unremarkable, TSH and troponin negative -CHADSVASC score of 1, deferring anticoagulation at present given low-risk -Currently rate-controlled, metoprolol PRN for tachycardia > 110s -Maintain Mg > 2, K > 4 -TTE ordered -Telemetry monitoring -Recommend outpt study to evaluate for RODY (2) Acute bronchitis: Plan: -Suspect viral process -Admission CXR normal -Saturating well on RA, stable respiratory status -Supportive care, benzonatate PRN- avoid Mucinex given atrial fibrillation (3) Hypertension: Plan: -BP stable on admission -Continue home amlodipine and benazepril (4) GERD (gastroesophageal reflux disease): Plan: -Continue omeprazole daily Plan FENGI: Regular diet Code status: Full DVT ppx: Low-risk, ambulation Isolation: None Dispo: Medical/surgical with telemetry Admission and Anticipated Discharge Date Admission Date: November 19, 2022 Subjective Mr. Barboza is a 62 y/o male with PMH significant for HTN, prior tobacco use, GERD, chronic back pain, and anxiety on Day 1 of admission for newly onset atrial fibrillation. Pt saw his PCP 11/19 for multiple weeks of worsening dyspnea and productive cough and was subsequently found to be in afib with HR of 90 on EKG. Pt arrived to ER hemodynamically stable. EKG w/ AF and rate of 83, no ST change identified. CBC, CMP, TSH, Mg, troponin, CXR unremarkable. Was given IVF repletion with NSS 500ccs. He was noted on monitor to be in atrial fibrillation with rates 60s-70s, pulse O2 > 94%. Pt examined at the bedside this AM and he relates feeling well, no physical concerns. Pt denies any chest pain, lightheadedness, palpitations. Pt endorses increased exertional dyspnea. Of note, pt also mentions some mood concerns of i ncreased anxiety/agitation. Pt questioned the intentions of his previous and current medical providers. Pt briefly mentioned prior psychiatric care at several locations, but did not wish to elaborate on any dx/medications. Pt initially denied idea of psych consult, but then requested to talk with psych during his current stay. Review of Systems Review of Systems: As per HPI Physical Exam Constitutional: well developed and well nourished; no acute distress Respiratory: normal respiratory effort; no respiratory distress +mild expiratory wheezes diffusely Cardiovascular: Irregularly irregular rhythm. Normal rate. No M/R/G Neurologic: No focal neurologic deficits. Psychiatric: Orientation: alert and oriented x 3 Apperance: appropriately dressed and appeared stated age Speech: + loud speech Affect: + anxious affect Thought Process: + tangential thought process Thought Content: + paranoid Suicidal Thoughts: denies suicidal thoughts Homicidal Thoughts: denies homicidal thoughts Results & Data ([facility]) Vital Signs (Past 12 Hours) Vital Signs Temp Pulse Pulse Resp BP Pulse Ox Pulse Ox 11/20/22 08:25 36.6 C 63 18 123/80 98 11/20/22 03:47 36.9 C 64 20 111/77 97 11/19/22 23:30 11/19/22 23:13 97 11/19/22 23:20 69 11/19/22 23:15 36.7 C 76 16 134/95 97 11/19/22 22:10 79 18 148/96 H 97 O2 Del Method O2 Del Method 11/20/22 08:25 Room Air 11/20/22 03:47 Room Air 11/19/22 23:30 Room Air 11/19/22 23:13 Room Air 11/19/22 23:20 11/19/22 23:15 Room Air 11/19/22 22:10 Room Air
--- NOTE | 2022-11-20 12:34 | Med Student Discharge Summary ---
Date of Service November 20, 2022 Admission HPI Per Admitting Provider 62 yo M with PMH HTN, previous tobacco use history, GERD, chronic back pain with THC use presenting with new onset atrial fibrillation. Pt has been dealing with mild but worsening dyspnea and productive cough for past few weeks. He saw his PCP in office today for routine checkup and was noted to be in atrial fibrillation with HR 90 on EKG. He was sent over to ED for evaluation. Pt did not have any chest pain, lightheadedness, palpitations. Only endorsing exertional dyspnea. Pt arrived to ER hemodynamically stable. EKG w/ AF and rate of 83, no ST change identified. CBC, CMP, TSH, Mg, troponin, CXR unremarkable. Was given IVF repletion with NSS 500ccs. During my evaluation, pt denied any acute complaints aside from mild cough. He was noted on monitor to be in atrial fibrillation with rates 60s-70s, pulse O2 > 94%. Admission Exam (Per Admitting) Constitutional General: well-appearing, no acute distress HEENT: Moist mucous membranes, EOMI, PERRLA CV: Irregular rhythm, normal rate, no murmurs noted Resp: Mild expiratory wheeze in upper lung abbasi, no crackles, good air entry b/l, no increased WOB Abd: soft, nontender, nondistended Neuro: no focal motor or sensory deficits, AOx3 Skin: no rashes, warm and dry Discharge Exam General: well developed and well nourished; no acute distress Respiratory:normal respiratory effort; no respiratory distress +mild expiratory wheezes diffusely Cardiovascular:Irregularly irregular rhythm. Normal rate. No M/R/G Neurologic:No focal neurologic deficits. Psychiatric:Orientation: alert and oriented x 3 Apperance: appropriately dressed and appeared stated age Speech: + loud speech Affect: + anxious affect Thought Process: + tangential thought process Thought Content: + paranoid Suicidal Thoughts: denies suicidal thoughts Homicidal Thoughts: denies homicidal thoughts Discharge Data Consultations 11/19/22 19:57 ED Decision to Admit Stat Hospital Course (1) New onset atrial fibrillation: -New onset atrial fibrillation per EKG and monitor, likely triggered by recent bronchitis/viral URI -Lab workup unremarkable, TSH and troponin negative -CHADSVASC score of 1, spoke with pt about his low stroke-risk, agreeable to defer anticoagulation at this time -Currently rate-controlled, metoprolol succinate 25mg prescribed -TTE performed, read still pending -Recommend outpt sleep study to evaluate for RODY given new afib dx. (2) Acute bronchitis: -Suspect viral process -Admission CXR normal, vitals stable during hospital stay. -Supportive care. Advised to avoid Mucinex given atrial fibrillation. (3) Hypertension: -Continued home medications. Added metoprolol as above. (4) Anxiety: -Pt has had multiple psychiatric providers in the past, but not currently following with one. -Recommend outpt psych evaluation (5) GERD (gastroesophageal reflux disease): Discharge Plan Discharge Items Patient Disposition: Home - Self-Care Reason For Visit: CARDIAC ASSESSMENT Discharge Diagnosis: Atria lfibrillation, new onset Activity: Per Instructions section Non-emergency contact: Primary Care Provider Call non-emergency contact if: your symptoms worsen, your pain is worsening and your temperature is above 101 Follow-up/Referrals: Angel Pimentel DO [Primary Care Provider] - 12/03/22 11:00 am Diet: Regular Addtl Attending Provider Instructions: A discharge summary will be sent to your primary care physician to ensure continuity of care. You came to the ED for new onset atrial fibrillation. During your hospital stay your electrolytes, kidney function, and lab results looked normal. With Atrial Fibrillation, the cause is an abnormal electrical signal at the atrium (top part of the heart). A duran focus of atrial fibrillation is rate control and during your stay your rates remained normal. However given that you had elevated heart rate prior to coming in we still feel it is necessary to add a medication to help control your rates. We will be sending you home on a medication called metoprolol succinate. Please keep in mind if you start to experience symptoms of lightheadedness or dizziness after taking this medication, do not take the medication anymore and consult your PCP for further recommendations. We also discussed the possibility of starting anticoagulation however at this time it was decided we will hold off for now and you can discuss this further with your PCP. Follow-up: * You should be seen by your primary physician within the next week. Medications: Your medication list has been reviewed and reconciled upon discharge to ensure accuracy and continuity of care. An updated list of all your medications is included with your hospital discharge paperwork. Please review this list closely, and make note of any changes. * A prescription for metoprolol succinate 25mg to take daily will be sent to your pharmacy. Take your medications as instructed; do not skip a dose of your medicines. Make sure all of your doctors know every medicine you are taking (including [id number] medicines, vitamins, and supplements). let your primary care provider know before taking any new medicines because some of these may interact with your current medications, or may make your symptoms worse. CONTACT YOUR PRIMARY CARE PROVIDER if you experience any of the following: * Fevers or shaking chills * Shortness of breath not relieved by inhalers, fainting * Sudden abdominal distension not relieved by catheterization. * Difficulty following your treatment plan, or difficulty taking medications CALL 911 OR GO TO THE EMERGENCY DEPARTMENT if you experience any of the following: * Sudden, severe abdominal pain or nausea/vomiting * Severe chest pain, or chest pain that radiates (moves) to your jaw or arm * Sudden, severe shortness of breath or difficulty breathing It was was our pleasure taking care of you here at [facility] . Thank you for allowing us to participate in your care. Pending Studies at Discharge: Yes (echocardiogram) Stand-Alone Forms: My [facility], Smoking Cessation Medications and DC Order Prescriptions: New benzonatate 100 mg Capsule 100 mg PO Q8H PRN (Reason: cough) 5 Days Qty: 15 0RF metoprolol succinate 25 mg tablet extended release 24 hr 25 mg PO DAILY 30 Days Qty: 30 0RF Continued benazepril 10 mg tablet 10 mg PO QAM Qty: 90 3RF amlodipine 5 mg tablet 5 mg PO QAM Qty: 90 3RF multivitamin Tablet 1 tab PO QAM omeprazole 20 mg Tablet,Disintegrat, Delay Rel 20 mg PO DAILY melatonin 10 mg Tablet 10 mg PO HS Discharge Orders: Discharge Order (Routine); Ordered 11/20/22 Ordered By: Pernell Dasilva Admission Data Admit Date/Time: 11/19/22 20:51 Attending Provider: Abhinav Pantoja Admit Provider: Dexter Carey Primary Care Provider: Angel Pimentel Other Providers: Dexter Carey Other Interventions: Discharge Summary Assessment (RN) Last Done: 11/20/22 15:01 Supervising Attestation I personally examined the patient and verified all duran points of history and exam, discussed case, and agree with decision making with A Carmen PRICE and Dr Dasilva feeling OK. somewhat difficult hx due to pressured and tangential speech. vitals noted nad heent nc at mmm lungs cta b/l no r/r/w good effort new afib - echo reassuring, TSH 1.58, should get outpt sleep study. rate controlled. CHADS-Vasc 1 - discussed risk/benefit of anticoagulation as best as his pressured speech would allow, right now not indicated but when he gets even 3 years older it would betried to discuss the debate of this. Safe/stable for home, close outpatient follow-up. dyspnea - bronchitis. safe/stable for home. no pseudoephedrine otherwise as above
--- NOTE | 2022-11-20 13:30 | XCELERA ---
[id number]
--- NOTE | 2022-11-20 15:26 | Electrocardiogram Report ---
Test Reason : Blood Pressure : / mmHG Vent. Rate : 083 BPM Atrial Rate : 082 BPM P-R Int : 000 ms QRS Dur : 092 ms QT Int : 376 ms P-R-T Axes : 000 -50 008 degrees QTc Int : 441 ms Atrial fibrillation Left anterior fascicular block Poor R wave progression, consider anterior LA vs. lead placement vs. LVH Abnormal ECG When compared with ECG of 08-JUN-2020 15:17, Atrial fibrillation has replaced Sinus rhythm Confirmed by Rolando Leigh ([id number]) on 11/20/2022 3:26:09 PM Referred By: Angel Pimentel Confirmed By:Rolando Leigh
--- NOTE | 2022-11-20 20:09 | Billing Data ---
Date of Service November 20, 2022 Coding Level of Care Code 16473 IN/OBS DISCH 30 MIN/LESS
--- NOTE | 2022-11-21 02:59 | Billing Data ---
Date of Service November 21, 2022 Coding Level of Care Code 24165 INT INP/OBS CARE
== END 2022-11-20 16:12 | disposition home or self-care (01) ==
LOC: ED 18:11 → 4W 18:11 → SUATTDRO 20:51 → 4W 22:53